=== PATIENT | male | born 1950 | race Caucasian/White ===

== ENCOUNTER 2024-11-13 13:54 | Inpatient (IN) | payer MEDICARE, SELFPAY ==
[2024-11-13 14:14] VITALS: BP 153/82; PULSE 80; RESP 16; TEMP 35.9; O2SAT 97; BMI 26.4
[2024-11-13] MEDS: oxyCODONE 5 MG Tablet 10 MG PO ×2 (16:15→22:10)
[2024-11-13] MEDS: CLARIFY ORDER NOTE (16:46)
[2024-11-13] MEDS: Tamsulosin HCl 0.4 MG Capsule PO (16:47)
[2024-11-13] MEDS: Methocarbamol 500 MG Tablet PO ×2 (16:47→22:11)
[2024-11-13] MEDS: Acetaminophen 325 MG Tablet 975 MG PO (16:48)
--- NOTE | 2024-11-13 20:09 | HP.PCM_ITS ---
HPI - General General Date of Admission: 11/13/24 Date of Service: 11/13/24 Chief Complaint: Here for rehabilitation. HPI Narrative PAUL CRUZ, is a 74 Male who presents with followin11/06/2024 Admit [facility]. [place]et, fell on icy steps 2 days ago. No head injury, no loss of consciousness. Transferred from [facility]. Unstable right trimalleolar fracture, partially reduced, improved perfusion. NWB RLE, Orthopedics, NPO, PT/OT for unstable right trimalleolar fracture. CIWA for alcohol abuse. SCD, Lovenox 30mg bid for DVT prophylaxis. 11/07/2024 Ortho performed ankle spanning external fixator. Planning ORIF surgery/external fixator removal 11/19/2024. 11/11/2024 NWB RLE. Aspirin 81mg bid x 4 weeks DVT prophylaxis. Ancef for perioperative antibiotics. Post Op CT right ankle. Gabapentin, Elavil, Robaxin 500mg q8 for pain/muscle spasm. CIWA protocol, phenobarbital taper for alcohol abuse. Indwelling wan catheter for urinary retention. 11/13/2024 Admit to TCU with debility, here for rehabilitation, strengthening, prior to discharge to [facility] for ORIF right ankle/external fixator removal surgery 11/19/2024. [facility] Medical History (Updated 11/13/24 @ 20:[address] Hugh Grider MD) Insomnia Osteoarthritis Neuropathic pain Chronic pain BPH (benign prostatic hyperplasia) Alcohol abuse Urinary retention Closed right trimalleolar fracture Debility Home Medications ?Medication ?Instructions ?Recorded ?Last Taken ?Type acetaminophen 325 mg capsule 975 mg PO Q6H pain 11/13/24 Unknown History amitriptyline 100 mg tablet 100 mg PO DAILY mood 11/13/24 Unknown History calcium 500 mg (as 1 tab PO BID supplement 11/13/24 Unknown History carbonate)-vitamin D3 5 mcg (200 unit) tablet (Calcium 500 + D) calcium carbonate (Calcium 500) 500 mg PO BID supplement 11/13/24 Unknown History cholecalciferol (vitamin D3) 50 50 mcg PO DAILY supplement 11/13/24 Unknown History mcg (2,000 unit) capsule cyanocobalamin (vitamin B-12) 500 500 mcg PO DAILY supplement 11/13/24 Unknown History mcg tablet enoxaparin 30 mg/0.3 mL 30 mg subcut Q12H blood thinner 11/13/24 Unknown History subcutaneous syringe folic acid 1 mg tablet 1 mg PO DAILY supplement 11/13/24 Unknown History gabapentin 300 mg capsule 900 mg PO TID pain 11/13/24 Unknown History melatonin 3 mg capsule 3 mg PO DAILY sleep 11/13/24 Unknown History meloxicam 7.5 mg tablet 7.5 mg PO DAILY pain 11/13/24 Unknown History methocarbamol 500 mg tablet 500 mg PO Q8H muscle relaxer 11/13/24 Unknown History multivitamin with minerals (One 1 tab PO DAILY supplement 11/13/24 Unknown History Daily Complete tablet) oxycodone 10 mg tablet 10 mg PO Q4H pain 11/13/24 Unknown History oxycodone 5 mg tablet 5 mg PO Q6H PRN pain (scale score 11/13/24 Unknown History 4-6) polyethylene glycol 3350 17 17 g PO DAILY bowels 11/13/24 Unknown History gram/dose oral powder (Miralax) sodium chloride 1,000 mg soluble 1,000 mg PO Q8H supplement 11/13/24 Unknown History tablet tamsulosin 0.4 mg capsule 0.4 mg PO DAILY BPH/urinary 11/13/24 Unknown History retention thiamine HCl (vitamin B1) 100 mg 100 mg PO DAILY supplement 11/13/24 Unknown History tablet Allergy/AdvReac Type Severity Reaction Status Date / Time No Known Allergies Allergy Verified 11/13/24 16:06 Social History (Updated 11/13/24 @ 20:[address] Hugh Grider MD) household members: none Smoking Status: Never smoker alcohol intake: current alcohol intake frequency: 3 or more drinks per day Alcohol type: beer substance use type: does not use ROS Constitutional Constitutional: Reports weakness; Denies chills, fever(s) or weight gain ENT HEENT: Denies headache(s), nasal congestion or nasal discharge Cardiovascular Cardiovascular: Denies chest pain or palpitations Respiratory/Chest Respiratory/Chest: Denies cough, excessive phlegm production or shortness of breath with exertion Gastrointestinal Gastrointestinal: Denies abdominal pain, nausea or vomiting Genitourinary Genitourinary: Denies dysuria Musculoskeletal Musculoskeletal: Denies joint pain or joint swelling Integumentary Integumentary: Denies rash or wounds Neurologic Neurologic: Denies focal weakness, numbness or tingling Psychiatric Psychiatric: Denies anxiety, auditory hallucinations, depression, homicidal ideation or suicidal ideation Vital Signs Vital Signs Vital Signs: 11/13/24 14:14 11/13/24 14:14 Temperature 96.7 F L Temperature Source Temporal Pulse Rate 80 Pulse Rhythm Regular Pulse Strength Normal (2+) Respiratory Rate 16 Respiratory Effort Normal Non-Labored Respiratory Depth Normal Respiratory Pattern Normal Blood Pressure 153/82 H Blood Pressure Mean 105 Pulse Ox 97 Oxygen Delivery Method Room Air Room Air Weight Weight: 78.789 kg Body Mass Index (BMI) 26.4 Physical Exam Const alert General Appearance: cooperative HEENT normocephalic Eyes PERRL and EOMs intact bilaterally Neck supple, no JVD and no carotid bruits Resp normal respiratory effort, normal air movement and clear to auscultation bilaterally Cardio regular rate and regular rhythm GI normal to inspection, nondistended, normoactive bowel sounds, non-tender and non-distended Extremity normal capillary refill Extremity Narrative: Right ankle external fixator, dressing, CATHERINE wrap. General Extremity: Negative for edema Skin no rashes or lesions noted General Skin Exam: no breakdown Psych affect normal Appearance: appropriate Assessment & Plan Assessment/Plan (1) Debility: (2) Closed right trimalleolar fracture: (3) Urinary retention: (4) Alcohol abuse: (5) BPH (benign prostatic hyperplasia): (6) Chronic pain: (7) Neuropathic pain: (8) Osteoarthritis: (9) Insomnia: PLAN: Plan 74 year old male with below past medical history hospitalized for unstable right trimalleolar fracture, underwent ankle spanning external fixator surgery 11/07/2024, admitted to TCU with debility, here for rehabilitation, strengthening, prior to discharge to [facility] for ORIF right ankle fracture/external fixator removal 11/19/2024. * Debility - PT/OT. * Pain - Tylenol 975mg q6, Oxycodone 10mg q4 prn pain (7-10). * Bowel - Miralax 17gmd daily, senna/colace 2 tablets bid, Magnesium citrate 300mL daily prn, Dulcolax 10mg pr daily prn. * Adult immunization - Administer pneumonia vaccine, covid vaccine, flu vaccine as appropriate. * DVT prophylaxis - Lovenox 30mg q12. * Headache - Elavil 100mg qhs, stable chronic terminal worker use, GDR not recommended. * Calcium deficiency - Calcium D 1 tablet bid. * Indigestion - TUMS 500mg bid. * Vitamin D deficiency - D3 50mcg daily. * Vitamin B12 deficiency - B12 500mcg daily. * Alcohol abuse - MVI 1 tablet daily, Thiamine 100mg daily, Folic acid 1mg daily. * Neuropathic pain - Gabapentin 900mg tid. * Insomnia - Melatonin 3mg qhs. * Osteoarthritis - Meloxicam 7.5mg daily. * Muscle spasm - Robaxin 500mg q8. * Hyponatremia - Sodium chloride 1gm q8. * BPH - Tamsulosin 0.4mg daily.
[2024-11-13] MEDS: Enoxaparin 30 MG/0.3 ML Syringe SC (22:09)
[2024-11-13] MEDS: Amitriptyline 100 MG Tablet PO (22:10)
[2024-11-13] MEDS: Gabapentin 300 MG Capsule 900 MG PO (22:10)
[2024-11-13] MEDS: MELATONIN 3 MG TABLET PO (22:10)
[2024-11-13] MEDS: Calcium Carbonate 500 MG Tablet PO (22:11)
[2024-11-13] MEDS: Senna/Docusate Sodium 1 Tablet 2 TABLET PO (22:11)
[2024-11-13] MEDS: Sodium Chloride 1 GM Tablet PO (22:12)
[2024-11-13] MEDS: Calcium Carb/Vitamin D 1 TABLET Tablet PO (22:13)
[2024-11-14] MEDS: Sodium Chloride 1 GM Tablet PO ×3 (05:03→22:13)
[2024-11-14] MEDS: Acetaminophen 325 MG Tablet 975 MG PO ×4 (05:03→22:14)
[2024-11-14] MEDS: Methocarbamol 500 MG Tablet PO ×3 (05:03→22:13)
[2024-11-14] MEDS: Gabapentin 300 MG Capsule 900 MG PO ×3 (05:03→22:13)
[2024-11-14 05:57] LABS: Absolute Neutrophil Count 4.3 X10^3/uL (2.0-7.7); Basophil# 0.05 X10^3/uL; Basophil% 0.7 % (0-1); Eosinophil# 0.24 X10^3/uL; Eosinophils% 3.5 % (0-5); Hematocrit 36.9 % (40-54); Hemoglobin 11.9 g/dL (13.0-16.5); Lymphocyte % 20.4 % (19-41); Mean Corp Hgb Conc 32.2 g/dL (32-36); Mean Corpuscular Hgb 31.6 pg (27.0-32.0); Mean Corpuscular Volume 98.1 fL (80-94); Mean Platelet Vol. 9.8 fl (6.2-12.0); Monocyte# 0.83 X10^3/uL; Monocyte% 12.1 % (0-10); NRBC Flagged by Analyzer 0 % (0-5); Neutrophil # 4.32 X10^3/uL (2.7-7.7); Neutrophil % 62.9 % (47-70); Platelet Count 317 K/mm3 (150-450); RBC Distribution Width CV 12.8 % (11.6-14.6); RBC Distribution Width SD 45.5 fl (35.1-43.9); Red Blood Count 3.76 M/mm3 (4.6-6.2); White Blood Count 6.9 K/mm3 (4.4-11.0)
[2024-11-14 06:33] LABS: Anion Gap 5 (5-15); BUN 17 mg/dL (7-18); BUN/Creat Ratio 18.3 RATIO (10-20); Calcium,Total 8.9 mg/dL (8.5-10.1); Chloride 104 mmol/L (98-107); Creatinine, Serum 0.93 mg/dL (0.70-1.30); EST Glomerular Filtration Rate 84 mL/min (>60); Est Glom Filt Rate - Afr Amer 102 mL/min (>60); Estimated Creatinine Clearance 67.42 ml/min; Glucose 109 mg/dL (74-106); Sodium Level 135 mmol/L (136-145)
[2024-11-14] MEDS: oxyCODONE 5 MG Tablet 10 MG PO ×3 (08:24→22:14)
[2024-11-14] MEDS: Folic Acid 1 MG Tablet PO (08:28)
[2024-11-14] MEDS: Senna/Docusate Sodium 1 Tablet 2 TABLET PO ×2 (08:29→22:13)
[2024-11-14] MEDS: Multivitamins,Ther W-Minerals Tablet 1 TABLET PO (08:29)
[2024-11-14] MEDS: Polyethylene Glycol 3350 17 GM PACKET PO (08:29)
[2024-11-14] MEDS: Calcium Carbonate 500 MG Tablet PO ×2 (08:29→22:13)
[2024-11-14] MEDS: Calcium Carb/Vitamin D 1 TABLET Tablet PO ×2 (08:29→22:13)
[2024-11-14] MEDS: Cholecalciferol (VIT D3) 25 MCG TABLET (1,000 UNITS) 50 MCG PO (08:30)
[2024-11-14] MEDS: Thiamine Hydrochloride 100 MG Tablet PO (08:30)
[2024-11-14] MEDS: Cyanocobalamin 500 MCG Tablet PO (08:30)
[2024-11-14] MEDS: FLU VACCINE **HIGH DOSE** TV 24-25 180 MCG/0.5 ML SYRINGE IM (08:41)
[2024-11-14] MEDS: Enoxaparin 30 MG/0.3 ML Syringe SC ×2 (08:41→22:13)
[2024-11-14] MEDS: Meloxicam 7.5 MG Tablet PO (08:42)
[2024-11-14 08:50] VITALS: BP 114/83; PULSE 77; RESP 16; TEMP 36.6; O2SAT 95
[2024-11-14] MEDS: Tuberculin,Purif.prot.deriv. 50 TU/ML Vial 0.1 ML ID (10:16)
--- NOTE | 2024-11-14 10:44 | NURSING ---
Addendum entered by Cris Mora 11/14/24 14:30: [facility] [place], [facility] will not be able to cover and transport costs for his appt/surgery. Updated resident. He had already called and left with Rena. Original Note: Resident asking about cost of different transport. Quote from physicians for one trip would be $1335.00, [place] would be $395.95. Updated resident and let him know RN had called the [facility] who said if a physician could enter a [employer] note they would be able to do more for him for transport coverage. Spoke with Rachel at Dr. Peters's office, she reached out to [facility] and is awaiting to see if they can get forms needed to get transport covered. She will call back if she hears anything.
[2024-11-14 11:11] VITALS: PULSE 84; RESP 16; O2SAT 98
--- NOTE | 2024-11-14 12:30 | NURSING ---
Cylinder Devalver Note; Activity Asset: Derek Helms is independent in his choice of daily activities. He enjoys talking with others, reading, watching tv, word search and sudoku. He will visits w/family and friends and welcomes visits from the therapy dog and machine tool technician instructor when available. Staff has given him word and number games, will remind him of social activities, weekly in room activities and respect his right to say no.
--- NOTE | 2024-11-14 16:01 | PHA.CONS_ITS ---
Documented by User: Cassi Ricketts 11/14/24 16:40 TCU RX Drug Regimen Review Subjective/Objective Subjective/Objective Subjective: TCU Admission. 74 YOM presented to outside hospital after falling on ice. Hospitalized for unstable right trimalleolar fracture, underwent ankle spanning external fixator surgery 11/07/2024. Admitted to TCU with debility for strengthening and rehabilitation prior to discharge to [facility] for ORIF right ankle fracture/external fixator removal 11/19/2024. Objective: Allergies No Known Allergies Allergy (Verified 11/13/24 16:06) Current Medications Generic Name Dose Route Start Last Admin Trade Name Freq PRN Reason Stop Dose Admin Acetaminophen 975 mg 11/14/24 16:00 Acetaminophen 325 Mg Tablet PO 0400,1100,1600,2300 [facility] Amitriptyline HCl 100 mg 11/13/24 22:00 11/13/24 22:10 Amitriptyline 100 Mg Tablet PO 100 mg QHS REINA Administration Bisacodyl 10 mg 11/13/24 14:40 Bisacodyl 10 Mg Suppository RC DAILY PRN PRN Constipation Calcium Carbonate 500 mg 11/13/24 22:00 11/14/24 08:29 Calcium Carbonate 500 Mg Tablet PO 500 mg BID REINA Administration Calcium/Vitamin D 1 tablet 11/13/24 22:00 11/14/24 08:29 Calcium Carb/Vitamin D 1 Tablet Tablet PO 1 tablet BID REINA Administration Cholecalciferol 50 mcg 11/14/24 10:00 11/14/24 08:30 Cholecalciferol (Vit D3) 25 Mcg Tablet (1,000 Units) PO 50 mcg DAILY REINA Administration Cyanocobalamin 500 mcg 11/14/24 10:00 11/14/24 08:30 Cyanocobalamin 500 Mcg Tablet PO 500 mcg DAILY REINA Administration Enoxaparin Sodium 30 mg 11/14/24 10:00 11/14/24 08:41 Enoxaparin 30 Mg/0.3 Ml Syringe SC 30 mg Q12 REINA Administration Folic Acid 1 mg 11/14/24 08:00 11/14/24 08:28 Folic Acid 1 Mg Tablet PO 1 mg BREAKFAST REINA Administration Gabapentin 900 mg 11/13/24 22:00 11/14/24 13:13 Gabapentin 300 Mg Capsule PO 900 mg TID REINA Administration Sodium Chloride 100 mls @ 15 mls/hr 11/13/24 14:38 IV .Q6H40M PRN Saline Flush Sodium Chloride 100 mls @ 15 mls/hr 11/13/24 14:38 IV .Q6H40M PRN Additional IVPB Infusion Magnesium Citrate 300 ml 11/13/24 14:40 Magnesium Citrate 300 Ml PO X1 PRN Constipation Melatonin 3 mg 11/13/24 22:00 11/13/24 22:10 Melatonin 3 Mg Tablet PO 3 mg QHS REINA Administration Meloxicam 7.5 mg 11/14/24 10:00 11/14/24 08:42 Meloxicam 7.5 Mg Tablet PO 7.5 mg DAILY REINA Administration Methocarbamol 500 mg 11/13/24 14:45 11/14/24 13:13 Methocarbamol 500 Mg Tablet PO 500 mg Q8 REINA Administration Multivitamins/Minerals 1 tablet 11/14/24 08:00 11/14/24 08:29 Multivitamins,Ther W-Minerals Tablet PO 1 tablet DAILYCM REINA Administration Oxycodone HCl 10 mg 11/13/24 16:13 11/14/24 14:08 Oxycodone 5 Mg Tablet PO 10 mg Q4H PRN PRN Administration Pain 7-10 Polyethylene Glycol 17 gm 11/14/24 10:00 11/14/24 08:29 Polyethylene Glycol 3350 17 Gm Packet PO 17 gm DAILY REINA Administration Senna/Docusate Sodium 2 tablet 11/13/24 22:00 11/14/24 08:29 Senna/Docusate Sodium 1 Tablet PO 2 tablet BID REINA Administration Sodium Chloride 10 - 40 ml 11/13/24 14:38 0.9% Saline Lock 10 Ml Syringe IV UD PRN SALINE FLUSH Sodium Chloride 1 gm 11/13/24 22:00 11/14/24 13:13 Sodium Chloride 1 Gm Tablet PO 1 gm Q8 REINA Administration Tamsulosin HCl 0.4 mg 11/13/24 17:30 11/13/24 16:47 Tamsulosin Hcl 0.4 Mg Capsule PO 0.4 mg DAILY@1730 REINA Administration Thiamine HCl 100 mg 11/14/24 10:00 11/14/24 08:30 Thiamine Hydrochloride 100 Mg Tablet PO 100 mg DAILY REINA Administration Tuberculin PPD 0.1 ml 11/21/24 10:00 Tuberculin,Purif.Prot.Deriv. 50 Tu/Ml Vial ID 11/21/24 10:01 X1 ONE Problem List Insomnia (Acute) Osteoarthritis (Acute) Neuropathic pain (Acute) Chronic pain (Chronic) BPH (benign prostatic hyperplasia) (Acute) Alcohol abuse (Acute) Urinary retention (Acute) Closed right trimalleolar fracture (Acute) Debility (Acute) Vital Signs Temp Pulse Resp BP Pulse Ox O2 Del Method 98 F 84 16 114/83 H 98 Room Air 11/14/24 08:50 11/14/24 11:11 11/14/24 11:11 11/14/24 08:50 11/14/24 11:11 11/14/24 11:11 Oxygen Delivery Method Room Air Weight: 78.8 kg Body Mass Index (BMI) 26.4 Sodium 135 mmol/L (136-145) L 11/14/24 05:20 Potassium 4.0 mmol/L (3.5-5.1) 11/14/24 05:20 Chloride 104 mmol/L (98-107) 11/14/24 05:20 Carbon Dioxide 26.0 mmol/L (21.0-32.0) 11/14/24 05:20 Anion Gap 5 (5-15) 11/14/24 05:20 BUN 17 mg/dL (7-18) 11/14/24 05:20 Creatinine 0.93 mg/dL (0.70-1.30) 11/14/24 05:20 Est GFR (MDRD) Af Amer 102 mL/min (>60) 11/14/24 05:20 Est GFR (MDRD) Non-Af 84 mL/min (>60) 11/14/24 05:20 BUN/Creatinine Ratio 18.3 RATIO (10-20) 11/14/24 05:20 Glucose 109 mg/dL (74-106) H 11/14/24 05:20 Assessment/Plan: 1. Pain/osteoarthritis: acetaminophen 975mg PO Q6, meloxicam 7.5mg PO daily and oxycodone 10mg PO Q4H PRN pain 7-10. Resident has had 4 doses of oxycodone for pain scores of 6 and 7 in the ankle/foot/leg. Please continue to monitor for increased pain, S/S of bleeding, renal function, PRN usage, constipation, respiratory depression and falls (BEERcruz). 2. Bowel: senna/docusate 2T PO BID, Miralax 17gm PO daily, magnesium citrate 300mL PO daily PRN constipation and bisacodyl 10mg RC daily PRN constipation. Resident has not had any PRN doses. Please continue to monitor for constipation, PRN usage. Last documented bowel movement was 11/14. 3. DVT prophylaxis: enoxaparin 30mg PO Q12. Please continue to monitor for S/S of bleeding/DVT, hemoglobin (last 11.9g/dL), platelets (last 317,000) and renal function. 4. Muscle spasm: methocarbamol 500mg PO Q8. Please continue to monitor for muscle spasms, anticholinergic side effects (BEERs) and drowsiness. 5. BPH: tamsulosin 0.4mg PO daily. Please continue to monitor for S/S of BPH and BP (last 114/). 6. Insomnia: melatonin 3mg PO QHS. Please continue to monitor for insomnia and excessive daytime drowsiness. 7. Hyponatremia: sodium chloride 1gm PO Q8. Please continue to monitor sodium (last 135mmol/L) and edema. 8. Indigestion and calcium/vitamin D/vitamin B12 deficiencies: calcium carbonate 500mg PO BID, calcium/vitamin D 1T PO BID, cholecalciferol 50mcg PO daily and cyanocobalamin 500mcg PO daily. Please consider ordering vitamin D and vitamin B12 levels as there are no levels in the chart. Thanks. Please continue to monitor calcium (last 8.9mg/dL). 9. Alcohol abuse: multivitamin with minerals 1T PO daily, thiamine 100mg PO daily and folic acid 1mg PO daily. Please continue to monitor. Assessment/Plan for indications treated with psychotropic medications: 1. Headache: amitriptyline 100mg PO QHS. Please see physician note regarding GDR. Please continue to monitor for headaches, sodium (last 135mmol/L, BEERs), dementia/delirium (BEERs), falls/fractures (BEERs), anticholinergic side effects (BEERs), and worsening BPH (BEERs). Resident has low sodium, BPH and a fall/fracture, all of which could have been due to amitriptyline. Please consider alternative agent if clinically appropriate. Thanks. 2. Neuropathic pain: gabapentin 900mg PO TID. GDR not appropriate as this m edication is being used for neuropathic pain. Please continue to monitor for confusion, falls/fractures (BEERs) and renal function. Medical chart and medication regimen reviewed. The following medication irregularities or issues were identified: 1. Calcium carbonate 500mg PO BID, calcium/vitamin D 1T PO BID, cholecalciferol 50mcg PO daily and cyanocobalamin 500mcg PO daily. Please consider ordering vitamin D and vitamin B12 levels as there are no levels in the chart. Thanks. 2. amitriptyline 100mg PO QHS. Resident has low sodium, BPH and a fall/fracture, all of which could have been due to amitriptyline as this medication is on the BEERs list for previously mentioned reasons. Please consider alternative agent if clinically appropriate. Thanks. Documented by User: Dr. Hugh Grider MD 11/14/24 16:15 TCU RX Drug Regimen Review Date Date of Note: 11/14/24 Provider Comments Provider responsibility Provider Comments to Recommendations by Pharmacy Agree
[2024-11-14] MEDS: Tamsulosin HCl 0.4 MG Capsule PO (16:21)
--- NOTE | 2024-11-14 16:38 | CASEMGMT ---
Addendum entered by Mary Ann Waldron 11/17/24 11:59: SW sent email referral to Jaja at [facility] Original Note: Social Work SW met with patient to complete initial assessment. Introduced self and role. Verified/updated contacts. Patient confirmed code status as full code. SW offered to complete advanced directives; pt agreed, wishes to name brother as HCPOA. SW to complete as time allows. Pt is being discharged to have surgery on 11/19. SW educated to Medicare benefit and copay coverage as pt does not have a secondary insurance. Pt's 21st day is 12/03, which would start the $209.50/day copays, that would be billed to the pt after DC. Pt's goal is to be on TCU after surgery only for a few days. Pt is aware he will be NWB for some time and states he can maneuver within his house. pt does not own any DME. SW educated to and/or VA coverage with DME. SW to assist with coordination. SW inquired about applying for Medicaid to assist with copays as a secondary health insurance, transportation, etc. Pt agreeable to apply. Pt shared finances with this worker. Pt may not qualify d/t income, but has not substantial savings and no assets. SW offered to apply and educated to [facility]. pt appreciative. SW will continue to follow to assist with DC planning and support. MINA CalleW
--- NOTE | 2024-11-14 16:41 | NURSING ---
pt spoke with the surgeon's office regarding Mondays appt. pt stated they messed up and do not need to see him until Sun, day of surgery. message left with ANGEL Lynch charge to set up transport.
--- NOTE | 2024-11-14 16:53 | NURSING ---
message left for Dr pierson (surgeon office) regarding time needed on Sunday for his surgery so transport can be set up. awaiting return call.
[2024-11-14] MEDS: Amitriptyline 100 MG Tablet PO (22:13)
[2024-11-14] MEDS: MELATONIN 3 MG TABLET PO (22:13)
[2024-11-15] MEDS: Acetaminophen 325 MG Tablet 975 MG PO ×4 (05:04→23:05)
[2024-11-15] MEDS: Gabapentin 300 MG Capsule 900 MG PO ×3 (05:04→20:57)
[2024-11-15] MEDS: Sodium Chloride 1 GM Tablet PO ×3 (05:04→21:00)
[2024-11-15] MEDS: Methocarbamol 500 MG Tablet PO ×3 (05:04→20:58)
[2024-11-15] MEDS: oxyCODONE 5 MG Tablet 10 MG PO ×3 (05:42→23:05)
[2024-11-15] MEDS: Cholecalciferol (VIT D3) 25 MCG TABLET (1,000 UNITS) 50 MCG PO (09:07)
[2024-11-15] MEDS: Meloxicam 7.5 MG Tablet PO (09:07)
[2024-11-15] MEDS: Calcium Carbonate 500 MG Tablet PO ×2 (09:07→21:01)
[2024-11-15] MEDS: Polyethylene Glycol 3350 17 GM PACKET PO (09:07)
[2024-11-15] MEDS: Calcium Carb/Vitamin D 1 TABLET Tablet PO ×2 (09:07→20:59)
[2024-11-15] MEDS: Enoxaparin 30 MG/0.3 ML Syringe SC ×2 (09:07→20:59)
[2024-11-15] MEDS: Thiamine Hydrochloride 100 MG Tablet PO (09:07)
[2024-11-15] MEDS: Multivitamins,Ther W-Minerals Tablet 1 TABLET PO (09:07)
[2024-11-15] MEDS: Folic Acid 1 MG Tablet PO (09:07)
[2024-11-15] MEDS: Senna/Docusate Sodium 1 Tablet 2 TABLET PO ×2 (09:07→21:00)
[2024-11-15] MEDS: Cyanocobalamin 500 MCG Tablet PO (09:08)
[2024-11-15 16:00] VITALS: BP 119/71; PULSE 87; RESP 18; TEMP 37.1
[2024-11-15] MEDS: Tamsulosin HCl 0.4 MG Capsule PO (16:46)
[2024-11-15 20:35] VITALS: PULSE 81; RESP 16; O2SAT 96
[2024-11-15] MEDS: Amitriptyline 100 MG Tablet PO (20:58)
[2024-11-15] MEDS: MELATONIN 3 MG TABLET PO (20:59)
--- NOTE | 2024-11-16 03:18 | NURSING ---
Palomo wraps removed from RLE, blistered area to lateral aspect of ankle cleansed, xeroform applied to open area, covered with gauze. RLE rewrapped with PALOMO wraps, leg elevated on pillow. Will continue to monitor.
[2024-11-16] MEDS: Acetaminophen 325 MG Tablet 975 MG PO ×4 (04:11→22:35)
[2024-11-16] MEDS: oxyCODONE 5 MG Tablet 10 MG PO ×3 (04:12→23:47)
[2024-11-16] MEDS: Gabapentin 300 MG Capsule 900 MG PO ×3 (06:30→22:32)
[2024-11-16] MEDS: Sodium Chloride 1 GM Tablet PO ×3 (06:31→22:34)
[2024-11-16] MEDS: Methocarbamol 500 MG Tablet PO ×3 (06:32→22:32)
[2024-11-16 09:53] VITALS: BP 131/78; PULSE 72; RESP 16; TEMP 36.8; O2SAT 97
[2024-11-16] MEDS: Folic Acid 1 MG Tablet PO (10:01)
[2024-11-16] MEDS: Meloxicam 7.5 MG Tablet PO (10:01)
[2024-11-16] MEDS: Polyethylene Glycol 3350 17 GM PACKET PO (10:01)
[2024-11-16] MEDS: Multivitamins,Ther W-Minerals Tablet 1 TABLET PO (10:01)
[2024-11-16] MEDS: Enoxaparin 30 MG/0.3 ML Syringe SC ×2 (10:01→22:36)
[2024-11-16] MEDS: Calcium Carb/Vitamin D 1 TABLET Tablet PO ×2 (10:02→22:33)
[2024-11-16] MEDS: Senna/Docusate Sodium 1 Tablet 2 TABLET PO ×2 (10:02→22:34)
[2024-11-16] MEDS: Thiamine Hydrochloride 100 MG Tablet PO (10:02)
[2024-11-16] MEDS: Calcium Carbonate 500 MG Tablet PO ×2 (10:02→22:34)
[2024-11-16] MEDS: Cholecalciferol (VIT D3) 25 MCG TABLET (1,000 UNITS) 50 MCG PO (10:03)
[2024-11-16] MEDS: Cyanocobalamin 500 MCG Tablet PO (10:03)
--- NOTE | 2024-11-16 15:36 | NURSING ---
PER DR GARNETT- PT TO RECEIVE LAST DOSE OF LOVENOX ON 11/17- NO LOVENOX ON 11/18 IN PREPARATION FOR SURGERY ON 11/19
[2024-11-16] MEDS: Tamsulosin HCl 0.4 MG Capsule PO (18:43)
[2024-11-16] MEDS: MELATONIN 3 MG TABLET PO (22:32)
[2024-11-16] MEDS: Amitriptyline 100 MG Tablet PO (22:33)
[2024-11-17] MEDS: Acetaminophen 325 MG Tablet 975 MG PO ×4 (04:39→22:26)
[2024-11-17] MEDS: oxyCODONE 5 MG Tablet 10 MG PO ×5 (05:14→22:26)
[2024-11-17] MEDS: Sodium Chloride 1 GM Tablet PO ×3 (06:08→22:25)
[2024-11-17] MEDS: Methocarbamol 500 MG Tablet PO ×3 (06:08→22:25)
[2024-11-17] MEDS: Gabapentin 300 MG Capsule 900 MG PO ×3 (06:09→22:25)
[2024-11-17 07:44] VITALS: BP 128/80; PULSE 78; RESP 20; TEMP 36.7; O2SAT 99
[2024-11-17] MEDS: Folic Acid 1 MG Tablet PO (09:08)
[2024-11-17] MEDS: Multivitamins,Ther W-Minerals Tablet 1 TABLET PO (09:09)
[2024-11-17] MEDS: Polyethylene Glycol 3350 17 GM PACKET PO (09:10)
[2024-11-17] MEDS: Calcium Carbonate 500 MG Tablet PO ×2 (09:11→22:25)
[2024-11-17] MEDS: Meloxicam 7.5 MG Tablet PO (09:11)
[2024-11-17] MEDS: Thiamine Hydrochloride 100 MG Tablet PO (09:12)
[2024-11-17] MEDS: Cyanocobalamin 500 MCG Tablet PO (09:13)
[2024-11-17] MEDS: Cholecalciferol (VIT D3) 25 MCG TABLET (1,000 UNITS) 50 MCG PO (09:13)
[2024-11-17] MEDS: Enoxaparin 30 MG/0.3 ML Syringe SC ×2 (09:20→22:24)
[2024-11-17] MEDS: Calcium Carb/Vitamin D 1 TABLET Tablet PO ×2 (10:11→22:25)
[2024-11-17] MEDS: Senna/Docusate Sodium 1 Tablet 2 TABLET PO ×2 (10:12→22:25)
--- NOTE | 2024-11-17 15:27 | WOUNDNOTE ---
wound photo: right lower leg/foot
--- NOTE | 2024-11-17 15:27 | WOUNDNOTE ---
wound photo: right foot
--- NOTE | 2024-11-17 15:28 | WOUNDNOTE ---
wound photo: right lower leg/foot
--- NOTE | 2024-11-17 15:30 | NURSING ---
Physicians transport scheduled to pick pt up at 0430 on 11/19 for surgery rt ankle by Dr Peters at [facility] in [place]. pt paid for transport with credit card. nurse Sharon from Lorraine's office requested pics of pt RT ankle/skin/fixator to be sent before surgery to email. Wound nurse was able to take pics and send to nurse via email [email or web address].
--- NOTE | 2024-11-17 15:33 | WOUNDNOTE ---
Wound photos sent via secure email to [email or web address] per physician request. see chart also for wound photos.
--- NOTE | 2024-11-17 15:41 | CASEMGMT ---
Social Work SW completed advanced directives with patient. Original and copy provided to pt. Copies placed on chart. Mary Ann Waldron CHEMICAL MAKER DRUPAL DEVELOPER
[2024-11-17] MEDS: Tamsulosin HCl 0.4 MG Capsule PO (18:17)
[2024-11-17 22:00] VITALS: PULSE 82; RESP 16
[2024-11-17] MEDS: Amitriptyline 100 MG Tablet PO (22:25)
[2024-11-17] MEDS: MELATONIN 3 MG TABLET PO (22:25)
[2024-11-17 23:21] LABS: Vitamin B12 1181 pg/mL (211-911); Vitamin D,25 Hydroxy 58.9 ng/mL
[2024-11-18] MEDS: Acetaminophen 325 MG Tablet 975 MG PO ×4 (05:07→22:02)
[2024-11-18] MEDS: Gabapentin 300 MG Capsule 900 MG PO ×3 (05:08→22:02)
[2024-11-18] MEDS: oxyCODONE 5 MG Tablet 10 MG PO ×3 (05:08→22:02)
[2024-11-18] MEDS: Sodium Chloride 1 GM Tablet PO ×3 (06:39→22:02)
[2024-11-18] MEDS: Methocarbamol 500 MG Tablet PO ×3 (06:39→22:03)
--- NOTE | 2024-11-18 07:43 | DS.PCM_ITS ---
Providers Date of Admission: 11/13/24 Primary Care Physician: CHRIS Bean Reason For Visit: R ANKLE FRACTURE Diagnosis Discharge Diagnosis (1) Debility: Status: Acute Code(s): R53.81 - Other malaise (2) Closed right trimalleolar fracture: Status: Acute Code(s): S82.851A - Displaced trimalleolar fracture of right lower leg, initial encounter for closed fracture (3) Urinary retention: Status: Acute Code(s): R33.9 - Retention of urine, unspecified (4) Alcohol abuse: Status: Acute Code(s): F10.10 - Alcohol abuse, uncomplicated (5) BPH (benign prostatic hyperplasia): Status: Acute Code(s): N40.0 - Benign prostatic hyperplasia without lower urinary tract symptoms (6) Chronic pain: Status: Chronic Code(s): G89.29 - Other chronic pain (7) Neuropathic pain: Status: Acute Code(s): M79.2 - Neuralgia and neuritis, unspecified (8) Osteoarthritis: Status: Acute Code(s): M19.90 - Unspecified osteoarthritis, unspecified site (9) Insomnia: Status: Acute Code(s): G47.00 - Insomnia, unspecified Plan 74 year old male with below past medical history hospitalized for unstable right trimalleolar fracture, underwent ankle spanning external fixator surgery 11/07/2024, admitted to TCU with debility, here for rehabilitation, strengthening, prior to discharge to [facility] for ORIF right ankle fracture/external fixator removal 11/19/2024. * Debility - PT/OT. * Pain - Tylenol 975mg q6, Oxycodone 10mg q4 prn pain (7-10). * Bowel - Miralax 17gmd daily, senna/colace 2 tablets bid, Magnesium citrate 300mL daily prn, Dulcolax 10mg pr daily prn. * Adult immunization - Administer pneumonia vaccine, covid vaccine, flu vaccine as appropriate. * DVT prophylaxis - Lovenox 30mg q12. * Headache - Elavil 100mg qhs, stable chronic termite exterminator use, GDR not recommended. * Calcium deficiency - Calcium D 1 tablet bid. * Indigestion - TUMS 500mg bid. * Vitamin D deficiency - D3 50mcg daily. * Vitamin B12 deficiency - B12 500mcg daily. * Alcohol abuse - MVI 1 tablet daily, Thiamine 100mg daily, Folic acid 1mg daily. * Neuropathic pain - Gabapentin 900mg tid. * Insomnia - Melatonin 3mg qhs. * Osteoarthritis - Meloxicam 7.5mg daily. * Muscle spasm - Robaxin 500mg q8. * Hyponatremia - Sodium chloride 1gm q8. * BPH - Tamsulosin 0.4mg daily. Medications at Discharge Home Medications acetaminophen 325 mg capsule 975 mg PO Q6H pain 11/13/24 amitriptyline 100 mg tablet 100 mg PO DAILY mood 11/13/24 calcium 500 mg (as carbonate)-vitamin D3 5 mcg (200 unit) tablet (Calcium 500 + D) 1 tab PO BID supplement 11/13/24 calcium carbonate (Calcium 500) 500 mg PO BID supplement 11/13/24 cholecalciferol (vitamin D3) 50 mcg (2,000 unit) capsule 50 mcg PO DAILY supplement 11/13/24 cyanocobalamin (vitamin B-12) 500 mcg tablet 500 mcg PO DAILY supplement 11/13/24 folic acid 1 mg tablet 1 mg PO DAILY supplement 11/13/24 gabapentin 300 mg capsule 900 mg PO TID pain 11/13/24 melatonin 3 mg capsule 3 mg PO DAILY sleep 11/13/24 meloxicam 7.5 mg tablet 7.5 mg PO DAILY pain 11/13/24 methocarbamol 500 mg tablet 500 mg PO Q8H muscle relaxer 11/13/24 multivitamin with minerals (One Daily Complete tablet) 1 tab PO DAILY supplement 11/13/24 oxycodone 10 mg tablet 10 mg PO Q4H pain 11/13/24 polyethylene glycol 3350 17 gram/dose oral powder (Miralax) 17 g PO DAILY bowels 11/13/24 sodium chloride 1,000 mg soluble tablet 1,000 mg PO Q8H supplement 11/13/24 tamsulosin 0.4 mg capsule 0.4 mg PO DAILY BPH/urinary retention 11/13/24 thiamine HCl (vitamin B1) 100 mg tablet 100 mg PO DAILY supplement 11/13/24 sennosides 8.6 mg-docusate sodium 50 mg tablet (Stimulant Laxative Plus) 2 tab PO BID #0 tabs 11/18/24 Hospital Course Operations None Procedures None Summary of Care Provided Minutes Spent on Discharge: 30 Hospital Course: 74 year old male with below past medical history hospitalized for unstable right trimalleolar fracture, underwent ankle spanning external fixator surgery 11/07/2024, admitted to TCU with debility, here for rehabilitation, strengthening, prior to discharge to [facility] for ORIF right ankle fracture/external fixator removal 11/19/2024. Discharge to [facility] 11/19/2024 for ORIF right trimalleolar ankle fracture/external fixator removal. Physical Exam Const alert General Appearance: cooperative HEENT normocephalic Eyes PERRL and EOMs intact bilaterally Neck supple, no JVD and no carotid bruits Resp normal respiratory effort, normal air movement and clear to auscultation bilaterally Cardio regular rate and regular rhythm GI normal to inspection, nondistended, normoactive bowel sounds, non-tender and non-distended Extremity normal capillary refill Extremity Narrative: Right ankle external fixator, dressing, CATHERINE wrap. General Extremity: Negative for edema Skin no rashes or lesions noted General Skin Exam: no breakdown Psych affect normal Appearance: appropriate Weight / BMI Weight Weight: 78.8 kg Body Mass Index (BMI) 26.4 ABG / Lab / Microbiology Data 11/14/24 05:20 11/14/24 05:20 Laboratory: Laboratory Results - last 24 hr 11/14/24 05:20: Vitamin B12 1181 H, Vitamin D 25-Hydroxy 58.9 D/C Instructions Discharge Diet: - (NPO.) Weight Bearing Status: No weight bearing (Right lower extremity.) Call your doctor if you observe: Fever of 101 or Higher, Inability to urinate, Inability to have a bowel movement, Shortness of breath, Dizziness, Fainting spells, Swelling in the ankles, Chest pain and Uncontrolled pain DC O2, CPAP, BIPAP Needs Home O2 Discharge instructions: No Additional Instructions: Discharge to [facility] 11/19/2024 for ORIF right trimalleolar ankle fracture/external fixator removal. Please Follow Up With: Bianca Barron Meaningful Use Info Meaningful Use Meaningful Use Diagnoses (Choose all that apply): None applicable Ischemic Stroke Statin Dosing Therapy Reference: STATIN DOSE THERAPY REFERENCE: * Patients > 75 years receive moderate or high dose statin therapy. * Patients 75 years or YOUNGER should receive HIGH intensity statin dose unless contraindicated. You will be required to document reason for non-treatment if statin daily dose does not meet guidelines. HIGH DOSE STATIN THERAPY DAILY Atorvastatin > than or = to 40 mg Rosuvastatin > than or = to 20 mg Amlodipine + Atorvastatin > than or = to 2.5/40 mg Ezetimibe + Simvastatin 10/80 mg Simvastatin 80mg Discharge Plan Admission Admit Date/Time: 11/13/24 13:54 Primary Reason for Your Visit: Debility. Attending Provider: Hugh Grider Chi Primary Care Provider: Kierra Oacmpo Took Instructions Additional Instructions / Restrictions: Discharge to [facility] 11/19/2024 for ORIF right trimalleolar ankle fracture/external fixator removal. Discharge Orders/Prescriptions Prescriptions: New sennosides-docusate sodium [Stimulant Laxative Plus] 8.6-50 mg Tablet 2 tab PO BID Qty: 0 0RF Continued acetaminophen 325 mg capsule 975 mg PO Q6H amitriptyline 100 mg tablet 100 mg PO DAILY calcium carbonate [Calcium 500] 500 mg calcium (1,250 mg) tablet,chewable 500 mg PO BID calcium carbonate-vitamin D3 [Calcium 500 + D] 500 mg-5 mcg (200 unit) tablet 1 tab PO BID cholecalciferol (vitamin D3) 50 mcg (2,000 unit) capsule 50 mcg PO DAILY cyanocobalamin (vitamin B-12) 500 mcg tablet 500 mcg PO DAILY folic acid 1 mg tablet 1 mg PO DAILY gabapentin 300 mg capsule 900 mg PO TID melatonin 3 mg capsule 3 mg PO DAILY meloxicam 7.5 mg tablet 7.5 mg PO DAILY methocarbamol 500 mg tablet 500 mg PO Q8H One Daily Complete Tablet 1 tab PO DAILY oxycodone 10 mg tablet 10 mg PO Q4H Patient Comments: pain 7-10 polyethylene glycol 3350 [Miralax] 17 gram/dose powder 17 g PO DAILY sodium chloride 1,000 mg tablet,soluble 1,000 mg PO Q8H tamsulosin 0.4 mg capsule 0.4 mg PO DAILY thiamine HCl (vitamin B1) 100 mg tablet 100 mg PO DAILY Discontinued enoxaparin 30 mg/0.3 mL syringe 30 mg subcut Q12H oxycodone 5 mg tablet 5 mg PO Q6H PRN (Reason: pain (scale score 4-6)) Referrals / Follow Up: Kierra Ocampo [Other] Disposition Disposition (needs filled in before D/C Order can be placed): [facility]
[2024-11-18 07:47] VITALS: BP 126/74; PULSE 70; RESP 16; TEMP 36.9; O2SAT 94
[2024-11-18 07:54] VITALS: BP 119/72; PULSE 76; RESP 16; TEMP 36.9; O2SAT 99
[2024-11-18] MEDS: Multivitamins,Ther W-Minerals Tablet 1 TABLET PO (07:57)
[2024-11-18] MEDS: Folic Acid 1 MG Tablet PO (07:57)
[2024-11-18] MEDS: Calcium Carb/Vitamin D 1 TABLET Tablet PO ×2 (07:57→22:02)
[2024-11-18] MEDS: Polyethylene Glycol 3350 17 GM PACKET PO (07:57)
[2024-11-18] MEDS: Cholecalciferol (VIT D3) 25 MCG TABLET (1,000 UNITS) 50 MCG PO (07:58)
[2024-11-18] MEDS: Thiamine Hydrochloride 100 MG Tablet PO (07:58)
[2024-11-18] MEDS: Cyanocobalamin 500 MCG Tablet PO (07:58)
[2024-11-18] MEDS: Calcium Carbonate 500 MG Tablet PO ×2 (07:58→22:03)
[2024-11-18] MEDS: Senna/Docusate Sodium 1 Tablet 2 TABLET PO (07:59)
[2024-11-18] MEDS: Meloxicam 7.5 MG Tablet PO (07:59)
[2024-11-18 08:04] VITALS: PULSE 74; RESP 16; O2SAT 94
[2024-11-18] MEDS: Tamsulosin HCl 0.4 MG Capsule PO (18:06)
[2024-11-18] MEDS: Amitriptyline 100 MG Tablet PO (22:02)
[2024-11-18] MEDS: MELATONIN 3 MG TABLET PO (22:02)
[2024-11-19] MEDS: oxyCODONE 5 MG Tablet 10 MG PO (03:53)
[2024-11-19 04:06] VITALS: RESP 16
[2024-11-19] MEDS: Acetaminophen 325 MG Tablet 975 MG PO (04:15)
--- NOTE | 2024-11-19 04:34 | NURSING ---
[facility] Leaving floor now.
--- NOTE | 2024-11-26 07:41 | MDS.RN ---
Information for the MDS was obtained from review of the clinical record, interview of resident, staff, and direct observation of resident?s care.
== END 2024-11-19 04:19 | disposition short-term general hospital (02) | DRG 560 ==
PROVIDERS: Admitting Provider Family Medicine Geriatric Medicine; PCP Nurse Practitioner; Referring Provider Family Medicine Geriatric Medicine; Visit Provider Family Medicine Geriatric Medicine
DX: S82.851D Displaced trimalleolar fracture of right lower leg, subsequent encounter for closed fracture with routine healing (principal); E87.1 Hypo-osmolality and hyponatremia; F10.10 Alcohol abuse, uncomplicated; E53.8 Deficiency of other specified B group vitamins; M19.90 Unspecified osteoarthritis, unspecified site; G62.9 Polyneuropathy, unspecified; E55.9 Vitamin D deficiency, unspecified; W00.1XXD Fall from stairs and steps due to ice and snow, subsequent encounter; G47.00 Insomnia, unspecified; R33.8 Other retention of urine; N40.1 Benign prostatic hyperplasia with lower urinary tract symptoms; Z91.85 Personal history of military service; Z91.82 Personal history of military deployment; Z79.899 Other long term (current) drug therapy; Z23 Encounter for immunization
CPT/HCPCS: 36415; 80048; 82306; 82607; 85025; 90662; 97110; 97162; 97166; 97530; 97535; 97802

== ENCOUNTER 2024-11-21 15:33 | Inpatient (IN) | payer MEDICARE, SELFPAY ==
[2024-11-21 15:51] VITALS: BP 136/81; PULSE 106; RESP 18; TEMP 36.4; O2SAT 98
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
[2024-11-21 16:27] VITALS: BMI 25.5
[2024-11-21] MEDS: oxyCODONE 5 MG Tablet PO (17:03)
[2024-11-21] MEDS: Acetaminophen 325 MG Tablet 975 MG PO ×2 (17:03→23:51)
[2024-11-21] MEDS: Gabapentin 300 MG Capsule 900 MG PO (21:45)
[2024-11-21] MEDS: Calcium Carbonate 500 MG Tablet PO (21:46)
[2024-11-21] MEDS: Aspirin 81 MG TAB.CHEW PO (21:46)
[2024-11-21] MEDS: Amitriptyline 100 MG Tablet PO (21:47)
[2024-11-21] MEDS: Senna/Docusate Sodium 1 Tablet 2 TABLET PO (21:47)
[2024-11-21] MEDS: Methocarbamol 500 MG Tablet PO (21:47)
[2024-11-21] MEDS: MELATONIN 3 MG TABLET PO (21:48)
[2024-11-21] MEDS: Sodium Chloride 1 GM Tablet PO (21:48)
[2024-11-21] MEDS: Cholecalciferol (VIT D3) 25 MCG TABLET (1,000 UNITS) PO (21:49)
[2024-11-22 05:55] LABS: Absolute Lymphocyte Count 1.64 X10^3/uL (0.83-4.51); Absolute Neutrophil Count 4.2 X10^3/uL (2.0-7.7); Basophil# 0.08 X10^3/uL; Basophil% 1.1 % (0-1); Eosinophil# 0.28 X10^3/uL; Eosinophils% 3.9 % (0-5); Hematocrit 38.9 % (40-54); Hemoglobin 13.1 g/dL (13.0-16.5); Lymphocyte # 1.64 X10^3/ul (0.83-4.51); Lymphocyte % 22.9 % (19-41); Mean Corp Hgb Conc 33.7 g/dL (32-36); Mean Corpuscular Hgb 32.3 pg (27.0-32.0); Mean Platelet Vol. 9.6 fl (6.2-12.0); Monocyte# 0.97 X10^3/uL; Monocyte% 13.5 % (0-10); NRBC Flagged by Analyzer 0 % (0-5); Neutrophil # 4.17 X10^3/uL (2.7-7.7); Neutrophil % 58.2 % (47-70); Platelet Count 454 K/mm3 (150-450); RBC Distribution Width CV 12.5 % (11.6-14.6); RBC Distribution Width SD 44.2 fl (35.1-43.9); Red Blood Count 4.05 M/mm3 (4.6-6.2); White Blood Count 7.2 K/mm3 (4.4-11.0)
[2024-11-22] MEDS: Acetaminophen 325 MG Tablet 975 MG PO ×3 (05:55→17:12)
[2024-11-22] MEDS: Gabapentin 300 MG Capsule 900 MG PO ×3 (05:55→21:51)
[2024-11-22] MEDS: Methocarbamol 500 MG Tablet PO ×3 (05:55→21:51)
[2024-11-22] MEDS: Sodium Chloride 1 GM Tablet PO ×3 (05:55→21:52)
[2024-11-22 06:08] LABS: Anion Gap 7 (5-15); BUN 21 mg/dL (7-18); BUN/Creat Ratio 19.6 RATIO (10-20); Calcium,Total 9.4 mg/dL (8.5-10.1); Chloride 102 mmol/L (98-107); Creatinine, Serum 1.07 mg/dL (0.70-1.30); EST Glomerular Filtration Rate 72 mL/min (>60); Est Glom Filt Rate - Afr Amer 87 mL/min (>60); Glucose 105 mg/dL (74-106); Potassium 3.8 mmol/L (3.5-5.1); Sodium Level 136 mmol/L (136-145)
[2024-11-22] MEDS: oxyCODONE 5 MG Tablet PO ×2 (06:52→13:10)
[2024-11-22 09:34] VITALS: BP 139/85; PULSE 82; RESP 14; TEMP 36.2; O2SAT 98
[2024-11-22] MEDS: Tamsulosin HCl 0.4 MG Capsule PO (09:38)
[2024-11-22] MEDS: Folic Acid 1 MG Tablet PO (09:38)
[2024-11-22] MEDS: Aspirin 81 MG TAB.CHEW PO ×2 (09:38→21:52)
[2024-11-22] MEDS: Multivitamins,Ther W-Minerals Tablet 1 TABLET PO (09:38)
[2024-11-22] MEDS: Thiamine Hydrochloride 100 MG Tablet PO (09:39)
[2024-11-22] MEDS: Senna/Docusate Sodium 1 Tablet 2 TABLET PO ×2 (09:39→21:52)
[2024-11-22] MEDS: Pantoprazole Sodium 40 MG Tablet PO (09:39)
[2024-11-22] MEDS: Calcium Carbonate 500 MG Tablet PO ×2 (09:39→21:53)
[2024-11-22] MEDS: Meloxicam 7.5 MG Tablet PO (09:39)
[2024-11-22] MEDS: Cholecalciferol (VIT D3) 25 MCG TABLET (1,000 UNITS) PO ×2 (09:40→21:54)
[2024-11-22] MEDS: Cyanocobalamin 500 MCG Tablet PO (09:40)
[2024-11-22] MEDS: Tuberculin,Purif.prot.deriv. 50 TU/ML Vial 0.1 ML ID (09:44)
[2024-11-22] MEDS: Amitriptyline 100 MG Tablet PO (21:51)
[2024-11-22] MEDS: MELATONIN 3 MG TABLET PO (21:52)
[2024-11-22 22:02] VITALS: RESP 16
[2024-11-23] MEDS: oxyCODONE 5 MG Tablet PO ×4 (00:30→19:43)
[2024-11-23] MEDS: Methocarbamol 500 MG Tablet PO ×3 (05:06→21:25)
[2024-11-23] MEDS: Gabapentin 300 MG Capsule 900 MG PO ×3 (05:06→21:25)
[2024-11-23] MEDS: Sodium Chloride 1 GM Tablet PO ×3 (05:06→21:25)
[2024-11-23] MEDS: Acetaminophen 325 MG Tablet 975 MG PO ×4 (05:07→21:26)
[2024-11-23 08:53] VITALS: BP 121/77; PULSE 72; RESP 16; TEMP 36.6; O2SAT 96
[2024-11-23] MEDS: Multivitamins,Ther W-Minerals Tablet 1 TABLET PO (08:55)
[2024-11-23] MEDS: Folic Acid 1 MG Tablet PO (08:55)
[2024-11-23] MEDS: Tamsulosin HCl 0.4 MG Capsule PO (08:56)
[2024-11-23] MEDS: Meloxicam 7.5 MG Tablet PO (08:56)
[2024-11-23] MEDS: Aspirin 81 MG TAB.CHEW PO ×2 (08:56→21:26)
[2024-11-23] MEDS: Pantoprazole Sodium 40 MG Tablet PO (08:57)
[2024-11-23] MEDS: Calcium Carbonate 500 MG Tablet PO ×2 (08:57→21:24)
[2024-11-23] MEDS: Senna/Docusate Sodium 1 Tablet 2 TABLET PO ×2 (08:57→21:25)
[2024-11-23] MEDS: Thiamine Hydrochloride 100 MG Tablet PO (08:58)
[2024-11-23] MEDS: Cyanocobalamin 500 MCG Tablet PO (08:58)
[2024-11-23] MEDS: Cholecalciferol (VIT D3) 25 MCG TABLET (1,000 UNITS) PO ×2 (08:59→21:27)
[2024-11-23] MEDS: MELATONIN 3 MG TABLET PO (21:25)
[2024-11-23] MEDS: Amitriptyline 100 MG Tablet PO (21:26)
[2024-11-23 21:33] VITALS: PULSE 81; RESP 16; O2SAT 96
[2024-11-24] MEDS: oxyCODONE 5 MG Tablet PO ×3 (00:05→13:51)
[2024-11-24] MEDS: Sodium Chloride 1 GM Tablet PO ×3 (05:09→21:15)
[2024-11-24] MEDS: Gabapentin 300 MG Capsule 900 MG PO ×3 (05:09→21:13)
[2024-11-24] MEDS: Methocarbamol 500 MG Tablet PO ×3 (05:09→21:14)
[2024-11-24] MEDS: Acetaminophen 325 MG Tablet 975 MG PO ×4 (05:10→21:21)
[2024-11-24 05:54] VITALS: PULSE 64; RESP 16; O2SAT 97
[2024-11-24 07:52] VITALS: BP 121/72; PULSE 77; RESP 16; TEMP 36.6; O2SAT 96
[2024-11-24] MEDS: Folic Acid 1 MG Tablet PO (07:53)
[2024-11-24] MEDS: Aspirin 81 MG TAB.CHEW PO ×2 (07:54→21:14)
[2024-11-24] MEDS: Multivitamins,Ther W-Minerals Tablet 1 TABLET PO (07:54)
[2024-11-24] MEDS: Senna/Docusate Sodium 1 Tablet 2 TABLET PO ×2 (07:54→21:14)
[2024-11-24] MEDS: Meloxicam 7.5 MG Tablet PO (07:54)
[2024-11-24] MEDS: Calcium Carbonate 500 MG Tablet PO ×2 (07:54→21:14)
[2024-11-24] MEDS: Tamsulosin HCl 0.4 MG Capsule PO (07:54)
[2024-11-24] MEDS: Pantoprazole Sodium 40 MG Tablet PO (07:54)
[2024-11-24] MEDS: Cholecalciferol (VIT D3) 25 MCG TABLET (1,000 UNITS) PO ×2 (07:55→21:23)
[2024-11-24] MEDS: Thiamine Hydrochloride 100 MG Tablet PO (07:55)
[2024-11-24] MEDS: Cyanocobalamin 500 MCG Tablet PO (07:55)
--- NOTE | 2024-11-24 08:51 | NURSING ---
Gang Tailer Note; Activity Asset: Derek Helms has returned to TCU after surgery and remains independent in his choice of daily activities. He enjoys talking with others, reading, watching tv, word search and sudoku. He will visits w/family and friends and welcomes visits from the therapy dog and coping machine assembler when available. Staff has given him word and number games, will remind him of social activities, weekly in room activities and respect his right to say no.
--- NOTE | 2024-11-24 12:07 | NURSING ---
Offered covid vaccine, VIS provided. Resident refuses at this time.
[2024-11-24] MEDS: MELATONIN 3 MG TABLET PO (21:15)
[2024-11-24] MEDS: Amitriptyline 100 MG Tablet PO (21:15)
[2024-11-25] MEDS: oxyCODONE 5 MG Tablet PO ×3 (00:34→22:58)
[2024-11-25] MEDS: Gabapentin 300 MG Capsule 900 MG PO ×3 (05:04→21:27)
[2024-11-25] MEDS: Acetaminophen 325 MG Tablet 975 MG PO ×4 (05:04→21:29)
[2024-11-25] MEDS: Sodium Chloride 1 GM Tablet PO ×3 (05:04→21:28)
[2024-11-25] MEDS: Methocarbamol 500 MG Tablet PO ×3 (05:05→21:30)
[2024-11-25] MEDS: Folic Acid 1 MG Tablet PO (08:20)
[2024-11-25] MEDS: Pantoprazole Sodium 40 MG Tablet PO (08:20)
[2024-11-25] MEDS: Thiamine Hydrochloride 100 MG Tablet PO (08:20)
[2024-11-25] MEDS: Cyanocobalamin 500 MCG Tablet PO (08:20)
[2024-11-25] MEDS: Meloxicam 7.5 MG Tablet PO (08:20)
[2024-11-25] MEDS: Tamsulosin HCl 0.4 MG Capsule PO (08:20)
[2024-11-25] MEDS: Multivitamins,Ther W-Minerals Tablet 1 TABLET PO (08:20)
[2024-11-25] MEDS: Cholecalciferol (VIT D3) 25 MCG TABLET (1,000 UNITS) PO ×2 (08:20→22:58)
[2024-11-25] MEDS: Senna/Docusate Sodium 1 Tablet 2 TABLET PO ×2 (08:20→21:30)
[2024-11-25] MEDS: Calcium Carbonate 500 MG Tablet PO ×2 (08:20→21:29)
[2024-11-25 08:21] VITALS: BP 126/74; PULSE 81; RESP 16; TEMP 36.9; O2SAT 94
[2024-11-25] MEDS: Aspirin 81 MG TAB.CHEW PO ×2 (08:21→21:30)
[2024-11-25 12:54] VITALS: BMI 25.3
--- NOTE | 2024-11-25 14:54 | PCM.PN.DRR ---
Documented by User: Cassi Ricketts 11/25/24 15:08 TCU RX Drug Regimen Review Subjective/Objective Subjective/Objective Subjective: TCU Admission. 74 YOM from TCU, hospitalized for right trimalleolar fracture, underwent ORIF right ankle, removal external fixator right lower extremity 11/19/2024, postoperative course uncomplicated. Admitted to TCU with debility for strengthening and rehabilitation. Objective: Allergies No Known Allergies Allergy (Verified 11/13/24 16:06) Current Medications Generic Name Dose Route Start Last Admin Trade Name Freq PRN Reason Stop Dose Admin Acetaminophen 975 mg 11/25/24 04:00 11/25/24 10:28 Acetaminophen 325 Mg Tablet PO 975 mg Q6@0400,1000,1600,2200 REINA Administration Amitriptyline HCl 100 mg 11/21/24 22:00 11/24/24 21:15 Amitriptyline 100 Mg Tablet PO 100 mg QHS REINA Administration Aspirin 81 mg 11/21/24 22:00 11/25/24 08:21 Aspirin 81 Mg Tab.Chew PO 81 mg BID REINA Administration Calcium Carbonate 500 mg 11/21/24 22:00 11/25/24 08:20 Calcium Carbonate 500 Mg Tablet PO 500 mg BID REINA Administration Cholecalciferol 25 mcg 11/21/24 22:00 11/25/24 08:20 Cholecalciferol (Vit D3) 25 Mcg Tablet (1,000 Units) PO 25 mcg BID REINA Administration Cyanocobalamin 500 mcg 11/22/24 10:00 11/25/24 08:20 Cyanocobalamin 500 Mcg Tablet PO 500 mcg DAILY REINA Administration Folic Acid 1 mg 11/22/24 08:00 11/25/24 08:20 Folic Acid 1 Mg Tablet PO 1 mg BREAKFAST REINA Administration Gabapentin 900 mg 11/21/24 22:00 11/25/24 13:27 Gabapentin 300 Mg Capsule PO 900 mg TID REINA Administration Magnesium Citrate 300 ml 11/21/24 16:14 Magnesium Citrate 300 Ml PO DAILY PRN CONSTIPATION Melatonin 3 mg 11/21/24 22:00 11/24/24 21:15 Melatonin 3 Mg Tablet PO 3 mg QHS REINA Administration Meloxicam 7.5 mg 11/22/24 10:00 11/25/24 08:20 Meloxicam 7.5 Mg Tablet PO 7.5 mg DAILY REINA Administration Methocarbamol 500 mg 11/21/24 22:00 11/25/24 13:27 Methocarbamol 500 Mg Tablet PO 500 mg Q8 REINA Administration Multivitamins/Minerals 1 tablet 11/22/24 08:00 11/25/24 08:20 Multivitamins,Ther W-Minerals Tablet PO 1 tablet DAILYCM REINA Administration Ondansetron HCl 4 mg 11/21/24 15:55 Ondansetron Odt 4 Mg Tablet PO Q8H PRN nausea and vomiting Oxycodone HCl 5 mg 11/21/24 16:14 11/25/24 00:34 Oxycodone 5 Mg Tablet PO 5 mg Q4H PRN Administration pain score (7-10) Pantoprazole Sodium 40 mg 11/22/24 10:00 11/25/24 08:20 Pantoprazole Sodium 40 Mg Tablet PO 12/19/24 10:01 40 mg DAILY REINA Administration Senna/Docusate Sodium 2 tablet 11/21/24 22:00 11/25/24 08:20 Senna/Docusate Sodium 1 Tablet PO 2 tablet BID REINA Administration Sodium Chloride 1 gm 11/21/24 22:00 11/25/24 13:27 Sodium Chloride 1 Gm Tablet PO 1 gm Q8 REINA Administration Tamsulosin HCl 0.4 mg 11/22/24 10:00 11/25/24 08:20 Tamsulosin Hcl 0.4 Mg Capsule PO 0.4 mg DAILY REINA Administration Thiamine HCl 100 mg 11/22/24 10:00 11/25/24 08:20 Thiamine Hydrochloride 100 Mg Tablet PO 100 mg DAILY REINA Administration Problem List Insomnia (Acute) Osteoarthritis (Acute) Neuropathic pain (Acute) Chronic pain (Chronic) BPH (benign prostatic hyperplasia) (Acute) Alcohol abuse (Acute) Closed right trimalleolar fracture (Acute) Debility (Acute) Vital Signs Temp Pulse Resp BP Pulse Ox O2 Del Method 98.4 F 81 16 126/74 H 94 Room Air 11/25/24 08:21 11/25/24 08:21 11/25/24 08:21 11/25/24 08:21 11/25/24 08:21 11/25/24 08:21 Oxygen Delivery Method Room Air Weight: 75.659 kg Body Mass Index (BMI) 25.3 Sodium 136 mmol/L (136-145) 11/22/24 05:25 Potassium 3.8 mmol/L (3.5-5.1) 11/22/24 05:25 Chloride 102 mmol/L (98-107) 11/22/24 05:25 Carbon Dioxide 27.0 mmol/L (21.0-32.0) 11/22/24 05:25 Anion Gap 7 (5-15) 11/22/24 05:25 BUN 21 mg/dL (7-18) H 11/22/24 05:25 Creatinine 1.07 mg/dL (0.70-1.30) 11/22/24 05:25 Est GFR (MDRD) Af Amer 87 mL/min (>60) 11/22/24 05:25 Est GFR (MDRD) Non-Af 72 mL/min (>60) 11/22/24 05:25 BUN/Creatinine Ratio 19.6 RATIO (10-20) 11/22/24 05:25 Glucose 105 mg/dL (74-106) 11/22/24 05:25 Assessment/Plan: 1. Pain/osteoarthritis: acetaminophen 975mg PO Q6, meloxicam 7.5mg PO daily and oxycodone 10mg PO Q4H PRN pain 7-10. Resident has had 11 doses of oxycodone for pain scores of 6-8 in the ankle/foot. Please continue to monitor for increased pain, S/S of bleeding, renal function, PRN usage, constipation, respiratory depression and falls (BEERs). 2. Bowel: senna/docusate 2T PO BID and magnesium citrate 300mL PO daily PRN constipation. Resident has not had any PRN doses. Please continue to monitor for constipation, PRN usage. Last documented bowel movement was 11/25/24. 3. DVT prophylaxis: aspirin 81mg PO BIDCM. Please consider adding stop date. Thanks. Please continue to monitor for S/S of bleeding/DVT, hemoglobin (last 13.1g/dL). 4. Muscle spasm: methocarbamol 500mg PO Q8. Please continue to monitor for muscle spasms, anticholinergic side effects (BEERs) and drowsiness. 5. BPH: tamsulosin 0.4mg PO daily. Please continue to monitor for S/S of BPH and BP (last 126/74). 6. Insomnia: melatonin 3mg PO QHS. Please continue to monitor for insomnia and excessive daytime drowsiness. 7. Hyponatremia: sodium chloride 1gm PO Q8. Please continue to monitor sodium (last 136mmol/L) and edema. 8. Indigestion and calcium/vitamin D/vitamin B12 deficiencies: calcium carbonate 500mg PO BID, calcium/vitamin D 1T PO BID, cholecalciferol 25mcg PO BID and cyanocobalamin 500mcg PO daily. Please consider decreasing cyanocobalamin to 250mcg as the last level from 11/14/24 was slightly elevated. Thanks. Please continue to monitor calcium (last 9.4mg/dL), B12 and vitamin D (both from 11/14/24). 9. Alcohol abuse: multivitamin with minerals 1T PO daily, thiamine 100mg PO daily and folic acid 1mg PO daily. Please continue to monitor. 10. GI prophylaxis: pantoprazole 40mg PO daily thru 12/19/24. Please continue to monitor for S/S of GI distress and diarrhea (BEERs). 11. Nausea: ondansetron ODT 4mg PO Q8H PRN nausea/vomiting. No PRN doses have been given. Please continue to monitor for nausea and PRN usage. Assessment/Plan for indications treated with psychotropic medications: 1. Headache: amitriptyline 100mg PO QHS. Please see physician note regarding GDR. Please continue to monitor for headaches, sodium (last 136mmol/L, BEERs), dementia/delirium (BEERs), falls/fractures (BEERs), anticholinergic side effects (BEERs), and worsening BPH (BEERs). 2. Neuropathic pain: gabapentin 900mg PO TID. GDR not appropriate as this medication is being used for neuropathic pain. Please continue to monitor for confusion, falls/fractures (BEERs) and renal function. Medical chart and medication regimen reviewed. The following medication irregularities or issues were identified: 1. Aspirin 81mg PO BIDCM. Please consider adding stop date. Thanks. 2. Cyanocobalamin 500mcg PO daily. Please consider decreasing cyanocobalamin to 250mcg as the last level from 11/14/24 was slightly elevated. Thanks. Date Date of Note: 11/25/24 Documented by User: Dr. Hugh Grider MD 11/25/24 17:16 TCU RX Drug Regimen Review Provider Comments Provider responsibility Provider Comments to Recommendations by Pharmacy Agree
[2024-11-25] MEDS: MELATONIN 3 MG TABLET PO (21:30)
[2024-11-25] MEDS: Amitriptyline 100 MG Tablet PO (21:31)
[2024-11-25 21:34] VITALS: PULSE 68; RESP 16; O2SAT 95
[2024-11-26] MEDS: oxyCODONE 5 MG Tablet PO ×3 (03:13→21:45)
[2024-11-26] MEDS: Acetaminophen 325 MG Tablet 975 MG PO ×4 (04:51→21:45)
[2024-11-26] MEDS: Gabapentin 300 MG Capsule 900 MG PO ×3 (04:53→21:44)
[2024-11-26] MEDS: Methocarbamol 500 MG Tablet PO ×3 (04:53→21:45)
[2024-11-26] MEDS: Sodium Chloride 1 GM Tablet PO ×3 (04:53→21:45)
[2024-11-26 05:02] VITALS: PULSE 64; RESP 16; O2SAT 97
[2024-11-26 08:28] VITALS: BP 129/75; PULSE 75; RESP 16; TEMP 36.6; O2SAT 95
[2024-11-26] MEDS: Tamsulosin HCl 0.4 MG Capsule PO (08:32)
[2024-11-26] MEDS: Calcium Carbonate 500 MG Tablet PO ×2 (08:32→21:45)
[2024-11-26] MEDS: Senna/Docusate Sodium 1 Tablet 2 TABLET PO ×2 (08:32→21:45)
[2024-11-26] MEDS: Multivitamins,Ther W-Minerals Tablet 1 TABLET PO (08:32)
[2024-11-26] MEDS: Meloxicam 7.5 MG Tablet PO (08:32)
[2024-11-26] MEDS: Folic Acid 1 MG Tablet PO (08:32)
[2024-11-26] MEDS: Aspirin 81 MG TAB.CHEW PO ×2 (08:32→21:45)
[2024-11-26] MEDS: Pantoprazole Sodium 40 MG Tablet PO (08:32)
[2024-11-26] MEDS: Thiamine Hydrochloride 100 MG Tablet PO (08:33)
[2024-11-26] MEDS: Cyanocobalamin 500 MCG Tablet 250 MCG PO (08:34)
[2024-11-26] MEDS: Cholecalciferol (VIT D3) 25 MCG TABLET (1,000 UNITS) PO ×2 (08:35→21:46)
--- NOTE | 2024-11-26 09:47 | CASEMGMT ---
Social Work IDT met with patient for care plan meeting. Discussed patient's progress in PT/OT/SN. Educated to Medicare benefit. Provided pt with written communication on insurance process and copay coverage during stay. Pt is aware he does not have secondary insurance coverage and would need to pay OOP for copays, if he remains day 21 or beyond, which is 12/05. Recommended pt install a ramp to enter home since pt is NWB RLE. Pt [facility] but it will need to be measured first, same with the need for w/c and FWW. Pt is anxious to return home, however, IDT concerned about pt returning home too quickly and without needs in place. Pt stated he can borrow the FWW and w/c from the [facility], and he is practicing steps with crutches today in therapy. ANGELIQUE suggested pt contacting the [facility] to get on the schedule for next week, then a DC date can be set and notify the [facility] to have the items on 'standby'. Pt agreed. Pt agreed to remain for continued therapy and will notify this worker when the [facility] can schedule the pt for measurements of the ramp and DME next week. ANGELIQUE appreciative. Will continue to follow to coordinate DC planning. Mary Ann Waldron PULMONARY NURSE PRACTITIONER PLASTER MACHINE OPERATOR
[2024-11-26] MEDS: Amitriptyline 100 MG Tablet PO (21:45)
[2024-11-26] MEDS: MELATONIN 3 MG TABLET PO (21:46)
[2024-11-27] MEDS: Methocarbamol 500 MG Tablet PO ×3 (05:44→21:00)
[2024-11-27] MEDS: Acetaminophen 325 MG Tablet 975 MG PO ×4 (05:44→22:56)
[2024-11-27] MEDS: Gabapentin 300 MG Capsule 900 MG PO ×3 (05:44→21:00)
[2024-11-27] MEDS: Sodium Chloride 1 GM Tablet PO ×3 (05:44→21:01)
[2024-11-27 08:33] VITALS: BP 126/76; PULSE 65; RESP 17; TEMP 36.5; O2SAT 96
[2024-11-27] MEDS: Folic Acid 1 MG Tablet PO (08:39)
[2024-11-27] MEDS: Multivitamins,Ther W-Minerals Tablet 1 TABLET PO (08:39)
[2024-11-27] MEDS: Meloxicam 7.5 MG Tablet PO (08:40)
[2024-11-27] MEDS: Aspirin 81 MG TAB.CHEW PO ×2 (08:40→20:59)
[2024-11-27] MEDS: Cyanocobalamin 500 MCG Tablet 250 MCG PO (08:40)
[2024-11-27] MEDS: Tamsulosin HCl 0.4 MG Capsule PO (08:40)
[2024-11-27] MEDS: Pantoprazole Sodium 40 MG Tablet PO (08:40)
[2024-11-27] MEDS: Senna/Docusate Sodium 1 Tablet 2 TABLET PO ×2 (08:40→21:01)
[2024-11-27] MEDS: Thiamine Hydrochloride 100 MG Tablet PO (08:40)
[2024-11-27] MEDS: Calcium Carbonate 500 MG Tablet PO ×2 (08:40→21:00)
[2024-11-27] MEDS: Cholecalciferol (VIT D3) 25 MCG TABLET (1,000 UNITS) PO ×2 (12:54→21:01)
[2024-11-27] MEDS: oxyCODONE 5 MG Tablet PO ×2 (15:49→22:55)
[2024-11-27] MEDS: Amitriptyline 100 MG Tablet PO (20:59)
[2024-11-27] MEDS: MELATONIN 3 MG TABLET PO (21:00)
[2024-11-28] MEDS: oxyCODONE 5 MG Tablet PO ×3 (04:18→22:53)
[2024-11-28] MEDS: Acetaminophen 325 MG Tablet 975 MG PO ×3 (05:12→21:44)
[2024-11-28] MEDS: Methocarbamol 500 MG Tablet PO ×3 (05:13→21:47)
[2024-11-28] MEDS: Gabapentin 300 MG Capsule 900 MG PO ×3 (05:13→21:44)
[2024-11-28] MEDS: Sodium Chloride 1 GM Tablet PO ×3 (05:13→21:45)
[2024-11-28 06:05] LABS: Absolute Lymphocyte Count 2.33 X10^3/uL (0.83-4.51); Absolute Neutrophil Count 4.4 X10^3/uL (2.0-7.7); Basophil% 1.2 % (0-1); Eosinophil# 0.39 X10^3/uL; Eosinophils% 4.8 % (0-5); Hematocrit 43.1 % (40-54); Hemoglobin 14.2 g/dL (13.0-16.5); Lymphocyte # 2.33 X10^3/ul (0.83-4.51); Lymphocyte % 28.7 % (19-41); Mean Corp Hgb Conc 32.9 g/dL (32-36); Mean Corpuscular Hgb 31.6 pg (27.0-32.0); Mean Platelet Vol. 9.4 fl (6.2-12.0); Monocyte# 0.83 X10^3/uL; Monocyte% 10.2 % (0-10); NRBC Flagged by Analyzer 0 % (0-5); Neutrophil # 4.42 X10^3/uL (2.7-7.7); Neutrophil % 54.6 % (47-70); Platelet Count 396 K/mm3 (150-450); RBC Distribution Width CV 12.4 % (11.6-14.6); RBC Distribution Width SD 43.8 fl (35.1-43.9); Red Blood Count 4.49 M/mm3 (4.6-6.2); White Blood Count 8.1 K/mm3 (4.4-11.0)
[2024-11-28 06:43] LABS: Anion Gap 8 (5-15); BUN 14 mg/dL (7-18); BUN/Creat Ratio 13.5 RATIO (10-20); Calcium,Total 9.5 mg/dL (8.5-10.1); Chloride 104 mmol/L (98-107); Creatinine, Serum 1.04 mg/dL (0.70-1.30); EST Glomerular Filtration Rate 74 mL/min (>60); Est Glom Filt Rate - Afr Amer 90 mL/min (>60); Estimated Creatinine Clearance 60.29 ml/min; Glucose 104 mg/dL (74-106); Potassium 4.1 mmol/L (3.5-5.1); Sodium Level 137 mmol/L (136-145)
[2024-11-28] MEDS: Folic Acid 1 MG Tablet PO (08:14)
[2024-11-28] MEDS: Multivitamins,Ther W-Minerals Tablet 1 TABLET PO (08:15)
[2024-11-28] MEDS: Aspirin 81 MG TAB.CHEW PO ×2 (08:16→21:46)
[2024-11-28] MEDS: Meloxicam 7.5 MG Tablet PO (08:17)
[2024-11-28] MEDS: Tamsulosin HCl 0.4 MG Capsule PO (08:17)
[2024-11-28] MEDS: Senna/Docusate Sodium 1 Tablet 2 TABLET PO ×2 (08:18→21:46)
[2024-11-28] MEDS: Pantoprazole Sodium 40 MG Tablet PO (08:18)
[2024-11-28] MEDS: Calcium Carbonate 500 MG Tablet PO ×2 (08:19→21:45)
[2024-11-28] MEDS: Thiamine Hydrochloride 100 MG Tablet PO (08:21)
[2024-11-28] MEDS: Cyanocobalamin 500 MCG Tablet 250 MCG PO (08:23)
[2024-11-28] MEDS: Cholecalciferol (VIT D3) 25 MCG TABLET (1,000 UNITS) PO ×2 (08:24→21:50)
--- NOTE | 2024-11-28 08:51 | NURSING ---
Treasury Agent Note; MDS for 11/28/2024 Complete
--- NOTE | 2024-11-28 09:37 | CASEMGMT ---
Social Work SW completed BIMS () and PHQ-2 () for MDS assessment. Mary Ann Waldron LOWER SCHOOL SPANISH TEACHER SENIOR SOFTWARE ENGINEER ANALYTICS
[2024-11-28] MEDS: MELATONIN 3 MG TABLET PO (21:44)
[2024-11-28] MEDS: Amitriptyline 100 MG Tablet PO (21:45)
[2024-11-29] MEDS: Gabapentin 300 MG Capsule 900 MG PO ×3 (04:50→21:27)
[2024-11-29] MEDS: Acetaminophen 325 MG Tablet 975 MG PO ×4 (04:50→21:28)
[2024-11-29] MEDS: Methocarbamol 500 MG Tablet PO ×3 (04:51→21:30)
[2024-11-29] MEDS: oxyCODONE 5 MG Tablet PO ×2 (04:51→21:34)
[2024-11-29] MEDS: Sodium Chloride 1 GM Tablet PO ×3 (04:51→21:31)
[2024-11-29] MEDS: Folic Acid 1 MG Tablet PO (08:36)
[2024-11-29] MEDS: Tamsulosin HCl 0.4 MG Capsule PO (08:37)
[2024-11-29] MEDS: Senna/Docusate Sodium 1 Tablet 2 TABLET PO ×2 (08:37→21:30)
[2024-11-29] MEDS: Multivitamins,Ther W-Minerals Tablet 1 TABLET PO (08:37)
[2024-11-29] MEDS: Pantoprazole Sodium 40 MG Tablet PO (08:37)
[2024-11-29] MEDS: Aspirin 81 MG TAB.CHEW PO ×2 (08:37→21:31)
[2024-11-29] MEDS: Meloxicam 7.5 MG Tablet PO (08:37)
[2024-11-29] MEDS: Calcium Carbonate 500 MG Tablet PO ×2 (08:37→21:29)
[2024-11-29] MEDS: Thiamine Hydrochloride 100 MG Tablet PO (08:38)
[2024-11-29] MEDS: Cyanocobalamin 500 MCG Tablet 250 MCG PO (08:38)
[2024-11-29] MEDS: Cholecalciferol (VIT D3) 25 MCG TABLET (1,000 UNITS) PO ×2 (08:38→21:33)
[2024-11-29 10:33] VITALS: BP 109/72; PULSE 65; RESP 18; TEMP 36.3; O2SAT 97
[2024-11-29] MEDS: Amitriptyline 100 MG Tablet PO (21:32)
[2024-11-29] MEDS: MELATONIN 3 MG TABLET PO (21:32)
[2024-11-30] MEDS: Acetaminophen 325 MG Tablet 975 MG PO ×4 (04:31→21:13)
[2024-11-30] MEDS: Gabapentin 300 MG Capsule 900 MG PO ×3 (04:32→21:12)
[2024-11-30] MEDS: Sodium Chloride 1 GM Tablet PO ×3 (04:32→21:12)
[2024-11-30] MEDS: Methocarbamol 500 MG Tablet PO ×3 (04:32→21:12)
[2024-11-30] MEDS: oxyCODONE 5 MG Tablet PO (04:32)
[2024-11-30] MEDS: Tamsulosin HCl 0.4 MG Capsule PO (08:55)
[2024-11-30] MEDS: Aspirin 81 MG TAB.CHEW PO ×2 (08:55→21:12)
[2024-11-30] MEDS: Multivitamins,Ther W-Minerals Tablet 1 TABLET PO (08:55)
[2024-11-30] MEDS: Folic Acid 1 MG Tablet PO (08:55)
[2024-11-30] MEDS: Senna/Docusate Sodium 1 Tablet 2 TABLET PO ×2 (08:56→21:12)
[2024-11-30] MEDS: Cyanocobalamin 500 MCG Tablet 250 MCG PO (08:56)
[2024-11-30] MEDS: Cholecalciferol (VIT D3) 25 MCG TABLET (1,000 UNITS) PO ×2 (08:56→21:13)
[2024-11-30] MEDS: Calcium Carbonate 500 MG Tablet PO ×2 (08:56→21:13)
[2024-11-30] MEDS: Meloxicam 7.5 MG Tablet PO (08:56)
[2024-11-30] MEDS: Pantoprazole Sodium 40 MG Tablet PO (08:56)
[2024-11-30] MEDS: Thiamine Hydrochloride 100 MG Tablet PO (08:56)
[2024-11-30 09:57] VITALS: BP 108/70; PULSE 77; RESP 18; TEMP 36.3; O2SAT 97
[2024-11-30] MEDS: Amitriptyline 100 MG Tablet PO (21:12)
[2024-11-30] MEDS: MELATONIN 3 MG TABLET PO (21:12)
[2024-12-01] MEDS: Acetaminophen 325 MG Tablet 975 MG PO ×4 (04:56→21:33)
[2024-12-01] MEDS: Sodium Chloride 1 GM Tablet PO ×3 (04:59→21:32)
[2024-12-01] MEDS: Gabapentin 300 MG Capsule 900 MG PO ×3 (04:59→21:31)
[2024-12-01] MEDS: Methocarbamol 500 MG Tablet PO ×3 (05:00→21:32)
[2024-12-01] MEDS: oxyCODONE 5 MG Tablet PO ×4 (05:00→23:01)
[2024-12-01 07:33] VITALS: BP 118/78; PULSE 70; RESP 16; TEMP 36.6; O2SAT 95
[2024-12-01] MEDS: Multivitamins,Ther W-Minerals Tablet 1 TABLET PO (07:40)
[2024-12-01] MEDS: Folic Acid 1 MG Tablet PO (07:40)
[2024-12-01] MEDS: Aspirin 81 MG TAB.CHEW PO ×2 (10:13→21:31)
[2024-12-01] MEDS: Pantoprazole Sodium 40 MG Tablet PO (10:14)
[2024-12-01] MEDS: Meloxicam 7.5 MG Tablet PO (10:14)
[2024-12-01] MEDS: Tamsulosin HCl 0.4 MG Capsule PO (10:14)
[2024-12-01] MEDS: Senna/Docusate Sodium 1 Tablet 2 TABLET PO ×2 (10:15→21:31)
[2024-12-01] MEDS: Calcium Carbonate 500 MG Tablet PO ×2 (10:16→21:31)
[2024-12-01] MEDS: Thiamine Hydrochloride 100 MG Tablet PO (10:20)
[2024-12-01] MEDS: Cyanocobalamin 500 MCG Tablet 250 MCG PO (10:21)
[2024-12-01] MEDS: Cholecalciferol (VIT D3) 25 MCG TABLET (1,000 UNITS) PO ×2 (10:23→21:32)
[2024-12-01 10:39] VITALS: PULSE 70; RESP 16; O2SAT 95
--- NOTE | 2024-12-01 16:18 | CASEMGMT ---
Social Work SW spoke with pt to follow up on DC plans and contact with the [facility]. Pt stated [facility] phone lines have been down since and unable to reach the [facility] to schedule ramp assessment. Pt intends to continue calling. Pt stated he has obtained a FWW and w/c from the [facility]. SW offered to set DC date. Pt prefers 12/04 d/t weather and will have transport home. SW accepted. Provided list of Skilled HHC providers including quality and resource data via [employer] Guide. Pt to review and notify this worker of preference. Plan: DC home alone 12/04, HHC PT/OT/SN/ANGELIQUE Waldron TURRET LATHE SET UP OPERATOR TYPEWRITER MECHANIC
[2024-12-01 18:05] VITALS: BP 122/70; PULSE 72; RESP 17; TEMP 36.4; O2SAT 96
--- NOTE | 2024-12-01 19:13 | DS.PCM_ITS ---
Providers Date of Admission: 11/21/24 Primary Care Physician: CHRIS Bean Reason For Visit: ORIF RIGHT ANKLE Diagnosis Discharge Diagnosis (1) Debility: Status: Acute Code(s): R53.81 - Other malaise (2) Closed right trimalleolar fracture: Status: Acute Code(s): S82.851A - Displaced trimalleolar fracture of right lower leg, initial encounter for closed fracture (3) Alcohol abuse: Status: Acute Code(s): F10.10 - Alcohol abuse, uncomplicated (4) BPH (benign prostatic hyperplasia): Status: Acute Code(s): N40.0 - Benign prostatic hyperplasia without lower urinary tract symptoms (5) Chronic pain: Status: Chronic Code(s): G89.29 - Other chronic pain (6) Neuropathic pain: Status: Acute Code(s): M79.2 - Neuralgia and neuritis, unspecified (7) Osteoarthritis: Status: Acute Code(s): M19.90 - Unspecified osteoarthritis, unspecified site (8) Insomnia: Status: Acute Code(s): G47.00 - Insomnia, unspecified Plan 74 year old male hospitalized for right trimalleolar fracture, underwent ORIF right ankle, removal external fixator right lower extremity 11/19/2024, postoperative course uncomplicated, admitted to TCU with debility, here for rehabilitation, strengthening, prior to discharge home alone. * Debility - PT/OT * Pain - Tylenol 975mg q6, Oxycodone 10mg q4 prn pain (7-10). * Bowel - senna/colace 2 tablets bid, Magnesium citrate 300mL daily prn. * Adult immunization - Administer pneumonia vaccine, covid vaccine, flu vaccine as appropriate. * DVT prophylaxis - Aspirin 81mg twice daily thru 12/19/2024. * Headache - Elavil 100mg qhs, stable chronic skilled nursing use, GDR not recommended. * Calcium deficiency - Calcium carbonate 500mg bid. * Vitamin B12 deficiency - B12 500mcg daily. * Alcohol abuse - MVI daily, Folic acid 1mg daily. * Neuropathic pain - Gabapentin 900mg tid. * Insomnia - Melatonin 3mg qhs. * Osteoarthritis - Meloxicam 7.5mg daily. * Muscle spasm - Robaxin 500mg q8. * Nausea - Zofran odt 4mg q8 prn. * GERD - Pantoprazole 40mg daily thru 12/19/2024. * Hyponatremia - Sodium chloride 1gm q8. * BPH/urinary retention - Tamsulosin 0.4mg daily, remove wan catheter, voiding trials. Medications at Discharge Home Medications acetaminophen 325 mg capsule 975 mg PO Q6H pain 11/13/24 amitriptyline 100 mg tablet 100 mg PO .HS mood 11/13/24 calcium carbonate (Calcium 500) 500 mg PO BID supplement 11/13/24 cholecalciferol (vitamin D3) 50 mcg (2,000 unit) capsule 50 mcg PO DAILY supplement 11/13/24 folic acid 1 mg tablet 1 mg PO DAILY supplement 11/13/24 gabapentin 300 mg capsule 900 mg PO TID pain 11/13/24 melatonin 3 mg capsule 3 mg PO .HS sleep 11/13/24 meloxicam 7.5 mg tablet 7.5 mg PO DAILY pain 11/13/24 methocarbamol 500 mg tablet 500 mg PO Q8H muscle relaxer 11/13/24 multivitamin with minerals (One Daily Complete tablet) 1 tab PO DAILY supplement 11/13/24 polyethylene glycol 3350 17 gram/dose oral powder (Miralax) 17 g PO DAILY bowels 11/13/24 sodium chloride 1,000 mg soluble tablet 1,000 mg PO Q8H supplement 11/13/24 tamsulosin 0.4 mg capsule 0.4 mg PO DAILY BPH/urinary retention 11/13/24 thiamine HCl (vitamin B1) 100 mg tablet 100 mg PO DAILY supplement 11/13/24 sennosides 8.6 mg-docusate sodium 50 mg tablet (Stimulant Laxative Plus) 2 tab PO BID constipation #0 tabs 11/18/24 aspirin 81 mg chewable tablet 1 tab PO BID heart 11/21/24 pantoprazole 40 mg tablet,delayed release 40 mg PO DAILY stomach 11/21/24 cyanocobalamin (vitamin B-12) 500 mcg tablet 250 mcg (1/2 x 500 mcg) PO DAILY 30 days #15 tabs 12/01/24 oxycodone 5 mg tablet 5 mg PO Q4H PRN pain score (7-10) 7 days #42 tabs 12/01/24 Hospital Course Operations - (See below.) Procedures None Summary of Care Provided Minutes Spent on Discharge: 35 Hospital Course: 74 year old male hospitalized for right trimalleolar fracture, underwent ORIF right ankle, removal external fixator right lower extremity 11/19/2024, postoperative course uncomplicated, admitted to TCU with debility, here for rehabilitation, strengthening, prior to discharge home alone. Discharge home alone 12/04/2024, [facility] PT/OT/SN/SW. Physical Exam Const alert General Appearance: cooperative HEENT normocephalic Eyes PERRL and EOMs intact bilaterally Neck supple, no JVD and no carotid bruits Resp normal respiratory effort, normal air movement and clear to auscultation bilaterally Cardio regular rate and regular rhythm GI normal to inspection, nondistended, normoactive bowel sounds, non-tender and non-distended Bladder / Kidney Exam: catheter in place urethral Extremity normal capillary refill Extremity Narrative: Right lower extremity short leg cast. General Extremity: Negative for edema Skin no rashes or lesions noted General Skin Exam: no breakdown Psych affect normal Appearance: appropriate Weight / BMI Weight Weight: 75.659 kg Body Mass Index (BMI) 25.3 ABG / Lab / Microbiology Data 11/28/24 05:46 11/28/24 05:46 D/C Instructions Discharge Diet: No restrictions Discharge Activity: Return to Normal Activity, May Shower and Use Walker Weight Bearing Status: No weight bearing (Right lower extremity.) Call your doctor if you observe: Fever of 101 or Higher, Inability to urinate, Inability to have a bowel movement, Shortness of breath, Dizziness, Fainting spells, Swelling in the ankles, Chest pain and Uncontrolled pain DC O2, CPAP, BIPAP Needs Home O2 Discharge instructions: No Additional Instructions: Discharge home alone 12/04/2024, [facility] PT/OT/SN/SW. Please Follow Up With: Nikole Fabian When: As scheduled. Meaningful Use Info Meaningful Use Meaningful Use Diagnoses (Choose all that apply): None applicable Ischemic Stroke Statin Dosing Therapy Reference: STATIN DOSE THERAPY REFERENCE: * Patients > 75 years receive moderate or high dose statin therapy. * Patients 75 years or YOUNGER should receive HIGH intensity statin dose unless contraindicated. You will be required to document reason for non-treatment if statin daily dose does not meet guidelines. HIGH DOSE STATIN THERAPY DAILY Atorvastatin > than or = to 40 mg Rosuvastatin > than or = to 20 mg Amlodipine + Atorvastatin > than or = to 2.5/40 mg Ezetimibe + Simvastatin 10/80 mg Simvastatin 80mg Discharge Plan Admission Admit Date/Time: 11/21/24 15:33 Primary Reason for Your Visit: Debility. Attending Provider: Hugh Grider Chi Primary Care Provider: Kierra Ocampo Took Instructions Additional Instructions / Restrictions: Discharge home alone 12/04/2024, [facility] PT/OT/SN/SW. Discharge Orders/Prescriptions Prescriptions: New cyanocobalamin (vitamin B-12) 500 mcg Tablet 250 mcg PO DAILY 30 Days Qty: 15 0RF oxycodone 5 mg Tablet 5 mg PO Q4H PRN (Reason: pain score (7-10)) 7 Days Qty: 42 0RF Continued acetaminophen 325 mg capsule 975 mg PO Q6H amitriptyline 100 mg tablet 100 mg PO .HS calcium carbonate [Calcium 500] 500 mg calcium (1,250 mg) tablet,chewable 500 mg PO BID cholecalciferol (vitamin D3) 50 mcg (2,000 unit) capsule 50 mcg PO DAILY folic acid 1 mg tablet 1 mg PO DAILY gabapentin 300 mg capsule 900 mg PO TID melatonin 3 mg capsule 3 mg PO .HS meloxicam 7.5 mg tablet 7.5 mg PO DAILY methocarbamol 500 mg tablet 500 mg PO Q8H One Daily Complete Tablet 1 tab PO DAILY polyethylene glycol 3350 [Miralax] 17 gram/dose powder 17 g PO DAILY sodium chloride 1,000 mg tablet,soluble 1,000 mg PO Q8H tamsulosin 0.4 mg capsule 0.4 mg PO DAILY thiamine HCl (vitamin B1) 100 mg tablet 100 mg PO DAILY sennosides-docusate sodium [Stimulant Laxative Plus] 8.6-50 mg Tablet 2 tab PO BID Qty: 0 0RF pantoprazole 40 mg tablet,delayed release (DR/EC) 40 mg PO DAILY aspirin 81 mg tablet,chewable 1 tab PO BID Discontinued calcium carbonate-vitamin D3 [Calcium 500 + D] 500 mg-5 mcg (200 unit) tablet 1 tab PO BID cyanocobalamin (vitamin B-12) 500 mcg tablet 500 mcg PO DAILY oxycodone 10 mg tablet 10 mg PO Q4H Patient Comments: pain 7-10 oxycodone 5 mg tablet 5 mg PO Q6H PRN (Reason: pain score (7-10)) ondansetron 4 mg tablet,disintegrating 4 mg PO Q8H PRN (Reason: nausea and vomiting) Referrals / Follow Up: Kierra Ocampo SHEET COMBINING OPERATOR-C [Primary Care Provider] - Disposition Disposition (needs filled in before D/C Order can be placed): Home Health Service
[2024-12-01] MEDS: MELATONIN 3 MG TABLET PO (21:32)
[2024-12-01] MEDS: Amitriptyline 100 MG Tablet PO (21:32)
[2024-12-02] MEDS: Acetaminophen 325 MG Tablet 975 MG PO ×4 (05:11→21:35)
[2024-12-02] MEDS: Sodium Chloride 1 GM Tablet PO ×3 (05:12→21:34)
[2024-12-02] MEDS: Methocarbamol 500 MG Tablet PO ×3 (05:12→21:34)
[2024-12-02] MEDS: Gabapentin 300 MG Capsule 900 MG PO ×3 (05:12→21:33)
[2024-12-02] MEDS: Aspirin 81 MG TAB.CHEW PO ×2 (08:44→21:34)
[2024-12-02] MEDS: Folic Acid 1 MG Tablet PO (08:44)
[2024-12-02] MEDS: Tamsulosin HCl 0.4 MG Capsule PO (08:44)
[2024-12-02] MEDS: Multivitamins,Ther W-Minerals Tablet 1 TABLET PO (08:44)
[2024-12-02] MEDS: Meloxicam 7.5 MG Tablet PO (08:44)
[2024-12-02] MEDS: Pantoprazole Sodium 40 MG Tablet PO (08:45)
[2024-12-02] MEDS: Senna/Docusate Sodium 1 Tablet 2 TABLET PO ×2 (08:45→21:33)
[2024-12-02] MEDS: Calcium Carbonate 500 MG Tablet PO ×2 (08:45→21:34)
[2024-12-02] MEDS: Cyanocobalamin 500 MCG Tablet 250 MCG PO (10:36)
[2024-12-02] MEDS: Thiamine Hydrochloride 100 MG Tablet PO (10:36)
[2024-12-02] MEDS: Cholecalciferol (VIT D3) 25 MCG TABLET (1,000 UNITS) PO ×2 (10:36→21:35)
[2024-12-02] MEDS: oxyCODONE 5 MG Tablet PO ×2 (13:53→18:33)
--- NOTE | 2024-12-02 14:02 | MDS.RN ---
Information for the MDS was obtained from review of the clinical record, interview of resident, staff, and direct observation of resident?s care.
--- NOTE | 2024-12-02 15:20 | CASEMGMT ---
Social Work SW completed BIMS () and PHQ-2 () for MDS assessment. SW inquired about HHC preference. [facility] and [facility]. Mary Ann Waldron MSW MULTIMEDIA PROGRAMMER
[2024-12-02 15:38] VITALS: BMI 25.7
[2024-12-02 16:00] VITALS: BP 111/80; PULSE 92; TEMP 36.8; O2SAT 97
[2024-12-02] MEDS: MELATONIN 3 MG TABLET PO (21:34)
[2024-12-02] MEDS: Amitriptyline 100 MG Tablet PO (21:34)
[2024-12-02 21:38] VITALS: RESP 16
[2024-12-03] MEDS: Sodium Chloride 1 GM Tablet PO ×3 (05:37→20:07)
[2024-12-03] MEDS: Methocarbamol 500 MG Tablet PO ×3 (05:37→20:06)
[2024-12-03] MEDS: Gabapentin 300 MG Capsule 900 MG PO ×3 (05:38→20:06)
[2024-12-03] MEDS: Acetaminophen 325 MG Tablet 975 MG PO ×3 (05:38→16:03)
[2024-12-03 08:21] VITALS: BP 113/77; PULSE 68; RESP 15; TEMP 36.4; O2SAT 97
[2024-12-03] MEDS: Aspirin 81 MG TAB.CHEW PO ×2 (08:22→20:06)
[2024-12-03] MEDS: Multivitamins,Ther W-Minerals Tablet 1 TABLET PO (08:22)
[2024-12-03] MEDS: Tamsulosin HCl 0.4 MG Capsule PO (08:22)
[2024-12-03] MEDS: Calcium Carbonate 500 MG Tablet PO ×2 (08:22→20:07)
[2024-12-03] MEDS: Cholecalciferol (VIT D3) 25 MCG TABLET (1,000 UNITS) PO ×2 (08:22→20:09)
[2024-12-03] MEDS: Cyanocobalamin 500 MCG Tablet 250 MCG PO (08:23)
[2024-12-03] MEDS: Pantoprazole Sodium 40 MG Tablet PO (08:23)
[2024-12-03] MEDS: Meloxicam 7.5 MG Tablet PO (08:23)
[2024-12-03] MEDS: Thiamine Hydrochloride 100 MG Tablet PO (08:23)
[2024-12-03] MEDS: Folic Acid 1 MG Tablet PO (08:24)
[2024-12-03] MEDS: oxyCODONE 5 MG Tablet PO ×2 (08:28→14:00)
[2024-12-03] MEDS: MELATONIN 3 MG TABLET PO (20:06)
[2024-12-03] MEDS: Amitriptyline 100 MG Tablet PO (20:06)
[2024-12-04] MEDS: oxyCODONE 5 MG Tablet PO (02:41)
[2024-12-04] MEDS: Acetaminophen 325 MG Tablet 975 MG PO ×2 (05:59→08:57)
[2024-12-04] MEDS: Methocarbamol 500 MG Tablet PO (05:59)
[2024-12-04] MEDS: Sodium Chloride 1 GM Tablet PO (06:00)
[2024-12-04] MEDS: Gabapentin 300 MG Capsule 900 MG PO (06:00)
[2024-12-04] MEDS: Pantoprazole Sodium 40 MG Tablet PO (08:56)
[2024-12-04] MEDS: Cyanocobalamin 500 MCG Tablet 250 MCG PO (08:56)
[2024-12-04] MEDS: Tamsulosin HCl 0.4 MG Capsule PO (08:58)
[2024-12-04] MEDS: Aspirin 81 MG TAB.CHEW PO (08:58)
[2024-12-04] MEDS: Calcium Carbonate 500 MG Tablet PO (08:58)
[2024-12-04] MEDS: Thiamine Hydrochloride 100 MG Tablet PO (08:58)
[2024-12-04] MEDS: Multivitamins,Ther W-Minerals Tablet 1 TABLET PO (08:58)
[2024-12-04] MEDS: Folic Acid 1 MG Tablet PO (08:58)
[2024-12-04] MEDS: Meloxicam 7.5 MG Tablet PO (09:00)
--- NOTE | 2024-12-04 09:27 | NURSING ---
Resident set up transport for appt on 12/08/24. Cancelled physicians transport as resident to [facility] home today.
[2024-12-04 10:21] VITALS: BP 111/67; PULSE 72; RESP 14; TEMP 36.8; O2SAT 95
== END 2024-12-04 11:00 | disposition home health service (06) | DRG 560 ==
PROVIDERS: Admitting Provider Family Medicine Geriatric Medicine; PCP Nurse Practitioner; Visit Provider Family Medicine Geriatric Medicine
DX: S82.851D Displaced trimalleolar fracture of right lower leg, subsequent encounter for closed fracture with routine healing (principal); E87.1 Hypo-osmolality and hyponatremia; F10.10 Alcohol abuse, uncomplicated; E53.8 Deficiency of other specified B group vitamins; G62.9 Polyneuropathy, unspecified; M19.90 Unspecified osteoarthritis, unspecified site; N40.1 Benign prostatic hyperplasia with lower urinary tract symptoms; G47.00 Insomnia, unspecified; R33.8 Other retention of urine; Z79.899 Other long term (current) drug therapy; Z79.82 Long term (current) use of aspirin; X58.XXXD Exposure to other specified factors, subsequent encounter
CPT/HCPCS: 36415; 80048; 85025; 87811; 97110; 97116; 97162; 97166; 97530; 97535; 97802